=== PATIENT | male | born 1975 | race Caucasian/White ===

== ENCOUNTER 2024-07-15 08:43 | Outpatient (REF) | payer MEDICAID, SELFPAY ==
--- NOTE | ~2024-07-15 | XR_ITS ---
EXAMINATION: XR shoulder right XR shoulder left CLINICAL INFORMATION: Bilateral shoulder pain for one year. COMPARISON: None TECHNIQUE: Right shoulder, 4 views Left shoulder, 4 views FINDINGS: Right shoulder: Bones have normal alignment. No evidence of any significant arthritic disease process at the glenohumeral or acromioclavicular joint. The glenohumeral joint space is maintained. The humeral head is well-positioned over the intact glenoid. The subacromial space is normal. No evidence of calcium deposition within rotator cuff tendons. Left shoulder: Bones have normal alignment. No evidence of arthritic deformity at the glenohumeral or acromioclavicular joint. The glenohumeral joint space is maintained. The humeral head is well-positioned over the intact glenoid. The subacromial space is normal. No evidence of calcium deposition within rotator cuff tendons. XR/XR shoulder RT min 2V IMPRESSION: No specific source of pain is identified. No evidence of calcific tendinopathy at either shoulder.
--- NOTE | ~2024-07-15 | XR_ITS ---
EXAMINATION: XR shoulder right XR shoulder left CLINICAL INFORMATION: Bilateral shoulder pain for one year. COMPARISON: None TECHNIQUE: Right shoulder, 4 views Left shoulder, 4 views FINDINGS: Right shoulder: Bones have normal alignment. No evidence of any significant arthritic disease process at the glenohumeral or acromioclavicular joint. The glenohumeral joint space is maintained. The humeral head is well-positioned over the intact glenoid. The subacromial space is normal. No evidence of calcium deposition within rotator cuff tendons. Left shoulder: Bones have normal alignment. No evidence of arthritic deformity at the glenohumeral or acromioclavicular joint. The glenohumeral joint space is maintained. The humeral head is well-positioned over the intact glenoid. The subacromial space is normal. No evidence of calcium deposition within rotator cuff tendons. XR/XR shoulder LT min 2V IMPRESSION: No specific source of pain is identified. No evidence of calcific tendinopathy at either shoulder.
[2024-07-15 11:41] LABS: MANUAL DIFF FLAG NO
[2024-07-15 11:55] LABS: Basophils Absolute Auto 0.1 X10*3/uL (0.0-0.2); Eosinophils Absolute Auto 0.3 X10*3/uL (0.0-0.4); Eosinophils Percent Auto 2.8 % (0-4); Hematocrit 44.7 % (42.0-52.0); Hemoglobin 14.8 g/dl (14.0-18.0); Imm Gran Abs Auto 0.02 X10*3/uL (0.00-0.03); Imm Gran Pct Auto 0.2 % (0.0-0.4); Lymphocytes Percent Auto 33.8 % (20-40); Mean Corpuscular HGB Conc 33.1 g/dl (31.0-36.0); Mean Corpuscular Volume 87.6 fL (80.0-98.0); Mean Platelet Volume 10.4 fL (9.4-12.4); Monocytes Absolute Auto 0.6 X10*3/uL (0.1-1.2); Neutrophils Absolute Auto 4.9 x10*3/uL (2.0-8.3); Neutrophils Percent Auto 55.2 % (45-73); Platelet Count 389 X10*3/uL (160-400); Red Cell Distribution Width 13.5 % (11.0-16.0); White Blood Count 8.8 X10*3/uL (4.8-10.8)
[2024-07-15 12:22] LABS: Alanine Aminotransferase 29 U/L (0-40); Albumin Level 4.4 g/dL (3.5-5.0); Alkaline Phosphatase 99 U/L (39-117); Anion Gap 16 (12-20); Aspartate Amino Transferase 24 U/L (5-37); Bilirubin Total 1.6 mg/dL (0.0-1.0); Blood Urea Nitrogen 9 mg/dL (9-16); Calcium 10.1 mg/dL (8.4-10.2); Carbon Dioxide 25 mmol/L (22-29); Chloride 102 mmol/L (96-108); Cholesterol 170 mg/dL (<200); Estimated Glomerular Filt Rate > 60; Glucose Random 210 mg/dL (60-115); HDL Cholesterol 42 mg/dL (>40); LDL Cholesterol Calculated 88 mg/dL (<100); Potassium 4.1 mmol/L (3.3-5.1); Sodium 139 mmol/L (135-145); Total Protein 7.9 g/dL (6.5-8.0); Triglycerides 202 mg/dL (<150)
[2024-07-15 12:41] LABS: Folate 11.9 ng/mL (> or = 4.0); Vitamin B12 432 pg/mL (200-900)
[2024-07-15 12:42] LABS: Vitamin D 25-OH Total 16.4 ng/mL (>30)
[2024-07-15 13:09] LABS: Reflex LDLD? No
[2024-07-16 04:58] LABS: HIV AB/AG Nonreactive (Nonreactive); HIV Num 1 0.07 S/CO (0.00-0.99)
[2024-07-16 19:44] LABS: RPR Rapid Plasma Reagin NON-REACTIVE (NON-REACTIVE)
[2024-07-17 08:29] LABS: HCV Log PCR <1.18 NOT DETECTED Log IU/mL (NOT DETECTED); HepC Viral Load <15 NOT DETECTED IU/mL (NOT DETECTED)
== END 2024-07-15 08:44 | disposition home or self-care (01) ==
LOC: HO.HHCL 08:43
PROVIDERS: Visit Provider Internal Medicine
DX: M25.511 Pain in right shoulder (principal); M25.512 Pain in left shoulder; G89.29 Other chronic pain; Z11.4 Encounter for screening for human immunodeficiency virus [HIV]; Z11.3 Encounter for screening for infections with a predominantly sexual mode of transmission; Z00.00 Encounter for general adult medical examination without abnormal findings
CPT/HCPCS: 36415; 73030; 80053; 80061; 82306; 82607; 82746; 84443; 85025; 86592; 87389; 87522

== ENCOUNTER 2024-10-19 08:15 | Outpatient (REF) | payer MEDICAID, SELFPAY ==
[2024-10-19 11:42] LABS: MANUAL DIFF FLAG NO
[2024-10-19 11:58] LABS: Basophils Absolute Auto 0.1 X10*3/uL (0.0-0.2); Basophils Percent Auto 1.1 % (0-2); Eosinophils Absolute Auto 0.5 X10*3/uL (0.0-0.4); Eosinophils Percent Auto 5.4 % (0-4); Hematocrit 44.2 % (42.0-52.0); Hemoglobin 14.6 g/dl (14.0-18.0); Imm Gran Abs Auto 0.03 X10*3/uL (0.00-0.03); Imm Gran Pct Auto 0.3 % (0.0-0.4); Lymphocytes Percent Auto 31.9 % (20-40); Mean Corpuscular Hemoglobin 29.1 pg (27.0-33.0); Mean Platelet Volume 10.6 fL (9.4-12.4); Monocytes Absolute Auto 0.5 X10*3/uL (0.1-1.2); Monocytes Percent Auto 5.3 % (2-11); Neutrophils Absolute Auto 5.2 x10*3/uL (2.0-8.3); Platelet Count 300 X10*3/uL (160-400); Red Blood Count 5.02 X10*6/uL (4.60-5.80); White Blood Count 9.2 X10*3/uL (4.8-10.8)
[2024-10-19 12:21] LABS: Alanine Aminotransferase 23 U/L (0-40); Albumin Level 4.2 g/dL (3.5-5.0); Alkaline Phosphatase 109 U/L (39-117); Anion Gap 13 (12-20); Aspartate Amino Transferase 26 U/L (5-37); Bilirubin Direct 0.3 mg/dL (0.0-0.5); Bilirubin Total 1.1 mg/dL (0.0-1.0); Blood Urea Nitrogen 9 mg/dL (9-16); Calcium 9.6 mg/dL (8.4-10.2); Carbon Dioxide 28 mmol/L (22-29); Chloride 102 mmol/L (96-108); Cholesterol 162 mg/dL (<200); Estimated Glomerular Filt Rate > 60; Glucose Random 289 mg/dL (60-115); HDL Cholesterol 35 mg/dL (>40); LDL Cholesterol Calculated 63 mg/dL (<100); Potassium 3.7 mmol/L (3.3-5.1); Sodium 139 mmol/L (135-145); Total Protein 7.5 g/dL (6.5-8.0); Triglycerides 323 mg/dL (<150)
[2024-10-19 12:47] LABS: TSH reflex Free T4 0.81 uIU/mL (0.32-4.0); Vitamin B12 425 pg/mL (200-900)
== END 2024-10-19 08:16 | disposition home or self-care (01) ==
LOC: HO.HHCL 08:15
PROVIDERS: Visit Provider Internal Medicine
DX: Z00.00 Encounter for general adult medical examination without abnormal findings (principal); E78.5 Hyperlipidemia, unspecified; E11.65 Type 2 diabetes mellitus with hyperglycemia; Z79.4 Long term (current) use of insulin
CPT/HCPCS: 36415; 80048; 80061; 80076; 82607; 84443; 85025

== ENCOUNTER 2024-12-01 11:49 | Outpatient (AMB) | payer MEDICAID, SELFPAY ==
[2024-12-01 11:51] VITALS: BP 74/50; PULSE 84; O2SAT 97; BMI 22.5
--- NOTE | 2024-12-01 11:51 | HO.NEPHOV ---
Vital Signs 12/01/24 11:51 12/01/24 12:08 12/01/24 12:09 Height 5 ft 10 in Weight 157 lb BMI 22.5 BP 74/50 L 80/50 L 80/50 L Blood Pressure Location Lt brachial Rt brachial Rt brachial Position Sitting Sitting Standing Pulse 84 Pulse Source Pulse Oximeter Pulse Oximetry (%) 97 Oxygen Delivery Method Room Air Intake Visit Reasons: ENP: Hypotension/ Conf Citizenship Instructor Required: No Accompanied by: Self / Same As Patient Allergies No Known Allergies Allergy (Verified 12/01/24 11:52) Medication List - Last Reconciled 12/01/24 by Boris Thompson MD atorvastatin 40 mg PO DAILY buspirone 15 mg PO BID empagliflozin-metformin 12.5-1,000 mg (Synjardy) 1 tab PO BID ertugliflozin 15 mg PO DAILY gabapentin 100 mg PO DAILY haloperidol 5 mg PO QAM hydroxyzine HCl 25 mg PO BID PRN insulin glargine (Lantus Solostar U-100 Insulin) 42 units subcut BEDTIME insulin lispro 4 units subcut QPM olanzapine 10 mg PO BEDTIME HPI Comments Details: 48-year-old man with a history of diabetes mellitus referred for hypotension. He has had hypotension since 2012. Up until recently he was on lisinopril 5 mg and clonidine 0.1 mg. This was stopped about 2 months ago. Despite this the blood pressure is still low and hence this referral. He denies any lightheadedness and he has no specific symptoms. Ongoing medical problems include history of longstanding diabetes mellitus. No history of hypertension. [facility] Medical History (Updated 12/01/24 @ 12:05 by Boris Thompson MD) Chronic pain of both shoulders Diabetic peripheral neuropathy Essential hypertension Hyperlipidemia Mood disorder Type 2 diabetes mellitus Family History Mother Diabetes type 2 Father Cancer Review of Systems Const Denies fever(s) and Denies weight loss Card Denies chest pain Resp Denies cough and Denies hemoptysis GI Denies abdominal pain, Denies diarrhea and Denies nausea Musc Denies back pain Neuro Denies focal weakness Physical Exam Vital Signs: Last Vital Signs Pulse 84 12/01/24 11:51 BP 74/50 L 12/01/24 11:51 Pulse Ox 97 12/31/24 11:51 Oxygen Delivery Method Room Air 12/01/24 11:51 BMI result Body Mass Index 22.5 Comfortable Neck supple no JVD. Lungs entry equal no rales. Heart S1-S2 heard no gallop or rub. Abdomen soft nontender. Neuro alert awake oriented. No asterixis. Extremities no edema. Results Reviewed Nephrology Results: Hgb 14.6 g/dl (14.0-18.0) 10/19/24 WBC 9.2 X10*3/uL (4.8-10.8) 10/19/24 Plt Count 300 X10*3/uL (160-400) 10/19/24 Sodium 139 mmol/L (135-145) 10/19/24 Potassium 3.7 mmol/L (3.3-5.1) 10/19/24 Chloride 102 mmol/L (96-108) 10/19/24 Carbon Dioxide 28 mmol/L (22-29) 10/19/24 BUN 9 mg/dL (9-16) 10/19/24 Creatinine 1.11 mg/dL (0.5-1.4) 10/19/24 Calcium 9.6 mg/dL (8.4-10.2) 10/19/24 Assessment & Plan Assessment & Plan (1) Hypotension: Code(s): I95.9 - Hypotension, unspecified Category: Medical Plan 48-year-old man with longstanding diabetes mellitus with asymptomatic hypotension. Claudine most likely has autonomic dysfunction. This may be due to underlying diabetes mellitus. However other causes including adrenal insufficiency should be ruled out. Plan Obtain 24 hour ambulatory blood pressure monitoring. Agree with holding lisinopril and clonidine. Discussed orthostatic precautions. He should stay on a regular salt diet. Further workup we will be based on the outcome of the above investigations. Orders: Orders Cortisol, Free Today I95.9 - Hypotension, unspecified AMB 24 HR B/P Monitor PLACEMENT Today I10 - Essential (primary) hypertension, I95.9 - Hypotension, unspecified Coding Level of Care Code New Pt Level 4 (56039) Diagnoses Hypotension I95.9
[2024-12-01 12:08] VITALS: BP 80/50
[2024-12-01 12:09] VITALS: BP 80/50
== END 2024-12-01 12:09 | disposition home or self-care (01) ==
PROVIDERS: PCP Internal Medicine; Visit Provider Internal Medicine Hypertension Specialist
DX: I95.9 Hypotension, unspecified (principal)
CPT/HCPCS: 99204

== ENCOUNTER → 2024-12-01 11:49 | Outpatient (BNVA) | payer MEDICAID, SELFPAY | PROVIDERS: PCP Internal Medicine; Visit Provider Internal Medicine Hypertension Specialist | DX: I95.9 Hypotension, unspecified (principal) | CPT/HCPCS: 99202 ==

== ENCOUNTER 2024-12-29 13:23 | Outpatient (AMB) | payer MEDICAID, SELFPAY ==
[2024-12-29 13:36] VITALS: BP 80/60; PULSE 97; O2SAT 96
--- NOTE | 2024-12-29 13:36 | HO.NEPHOV ---
Vital Signs 12/29/24 13:36 Height 5 ft 10 in BP 80/60 L Blood Pressure Location Lt brachial Position Sitting Pulse 97 Pulse Source Pulse Oximeter Pulse Oximetry (%) 96 Oxygen Delivery Method Room Air Intake Visit Reasons: BPM Interpretation/ Conf Ostomy Nurse Required: No Accompanied by: Self / Same As Patient Allergies No Known Allergies Allergy (Verified 12/29/24 13:36) Medication List - Last Reconciled 12/29/24 by Boris Thompson MD atorvastatin 40 mg PO DAILY buspirone 15 mg PO BID empagliflozin-metformin 12.5-1,000 mg (Synjardy) 1 tab PO BID ertugliflozin 15 mg PO DAILY gabapentin 100 mg PO DAILY haloperidol 5 mg PO QAM hydroxyzine HCl 25 mg PO BID PRN insulin glargine (Lantus Solostar U-100 Insulin) 42 units subcut BEDTIME insulin lispro 4 units subcut QPM olanzapine 10 mg PO BEDTIME HPI Comments Details: 48-year-old man with a history of diabetes mellitus referred for hypotension. He has had hypotension since 2012. Up until recently he was on lisinopril 5 mg and clonidine 0.1 mg. This was stopped about 2 months ago. Despite this the blood pressure is still low and hence this referral. He denies any lightheadedness and he has no specific symptoms. Ongoing medical problems include history of longstanding diabetes mellitus. No history of hypertension. 12/21/2024. He underwent ambulatory blood pressure monitoring. He denies any new complaints today. Did not undergo blood test resolved [facility] Medical History (Updated 12/01/24 @ 12:05 by Boris Thompson MD) Chronic pain of both shoulders Diabetic peripheral neuropathy Essential hypertension Hyperlipidemia Mood disorder Type 2 diabetes mellitus Family History Mother Diabetes type 2 Father Cancer Physical Exam Vital Signs: Last Vital Signs Pulse 97 12/29/24 13:36 BP 80/60 L 12/29/24 13:36 Pulse Ox 96 12/29/24 13:36 Oxygen Delivery Method Room Air 12/29/24 13:36 Sitting blood pressure 80/60 standing blood pressure 80/60. He was asymptomatic Comfortable Neck supple no JVD. Lungs entry equal no rales. Heart S1-S2 heard no gallop or rub. Abdomen soft nontender. Neuro alert awake oriented. No asterixis. Extremities no edema. Office Procedures 24 B/P Monitor Interpretation Details: Daytime average blood pressure was 117/79 Nighttime average blood pressure was 120/81. No nocturnal dipping. 24 hour average was 118/80 mm Hg. CPT: 23009 24 Hour Blood Pressure Monitor Reading Procedure code (CPT) selection complete Results Reviewed Nephrology Results: Hgb 14.6 g/dl (14.0-18.0) 10/19/24 WBC 9.2 X10*3/uL (4.8-10.8) 10/19/24 Plt Count 300 X10*3/uL (160-400) 10/19/24 Sodium 139 mmol/L (135-145) 10/19/24 Potassium 3.7 mmol/L (3.3-5.1) 10/19/24 Chloride 102 mmol/L (96-108) 10/19/24 Carbon Dioxide 28 mmol/L (22-29) 10/19/24 BUN 9 mg/dL (9-16) 10/19/24 Creatinine 1.11 mg/dL (0.5-1.4) 10/19/24 Calcium 9.6 mg/dL (8.4-10.2) 10/19/24 Assessment & Plan Assessment & Plan (1) Hypotension: Code(s): I95.9 - Hypotension, unspecified Category: Medical Plan 48-year-old man with longstanding diabetes mellitus with asymptomatic hypotension. Alfred most likely has autonomic dysfunction. This may be due to underlying diabetes mellitus. However other causes including adrenal insufficiency should be ruled out. 24 hour ambulatory blood pressure monitoring did not reveal any significant hypotension. Agree with holding lisinopril and clonidine. No need for any antihypertensive medications. Check cortisol levels. Discussed orthostatic precautions. Despite low blood pressure readings he is asymptomatic. She will continue to watch him closely. If he is symptomatic then we can add midodrine 2.5 mg in the morning and titrate the dose as needed. He should stay on a regular salt diet. Orders: Orders Cortisol, Free 1 Day I95.9 - Hypotension, unspecified UA and rflx microscopic 1 Day I95.9 - Hypotension, unspecified AMB 24 HR B/P Monitor INTERPRETATION Today I10 - Essential (primary) hypertension Coding Level of Care Code Est Pt Level 4 (25392) Diagnoses Hypotension I95.9 CPT Codes - CPT: 76369 24 Hour Blood Pressure Monitor Reading ([id number])
== END 2024-12-29 13:47 | disposition home or self-care (01) ==
PROVIDERS: PCP Internal Medicine; Visit Provider Internal Medicine Hypertension Specialist
DX: I95.9 Hypotension, unspecified (principal); E11.8 Type 2 diabetes mellitus with unspecified complications
CPT/HCPCS: 93790; 99214

== ENCOUNTER → 2024-12-29 13:23 | Outpatient (BNVA) | payer MEDICAID, SELFPAY | PROVIDERS: PCP Internal Medicine; Visit Provider Internal Medicine Hypertension Specialist | DX: I95.9 Hypotension, unspecified (principal) | CPT/HCPCS: 93786; 99212 ==

== ENCOUNTER 2025-02-17 07:46 | Outpatient (REF) | payer MEDICAID, SELFPAY ==
[2025-02-17 11:10] LABS: Appearance Urine Clear; Color Urine Yellow; Glucose Urine UA >=1000 mg/dL (Negative); Leukocyte Esterase Urine Negative (Negative); Nitrite Urine Negative (Negative); Specific Gravity - Urine >= 1.030 (1.005-1.025); UMIC TRIGGER UA YES; Urine Blood Negative (Negative); Urine Ketones Negative (Negative); Urine Protein Trace mg/dL (Neg-Trace)
[2025-02-17 11:19] LABS: Bacteria Urine None Seen (None Seen); Hyaline Casts Urine 0-2 /LPF (0-2); RBC Urine 0-2 /HPF (0-2); Squamous Epithelial Cell Urine 0-2 /HPF (0-2); WBC Urine 0-5 /HPF (0-5)
[2025-02-28 13:28] LABS: Cortisol, Free 0.64 mcg/dL
== END 2025-02-17 07:47 | disposition home or self-care (01) ==
LOC: HO.10HDL 07:46
PROVIDERS: Visit Provider Internal Medicine Hypertension Specialist
DX: I95.9 Hypotension, unspecified (principal)
CPT/HCPCS: 36415; 81001; 81003; 82530

== ENCOUNTER 2025-02-22 13:38 | Outpatient (AMB) | payer MEDICAID, SELFPAY ==
[2025-02-22 13:49] VITALS: BP 82/60; PULSE 80; O2SAT 97; BMI 22.2
--- NOTE | 2025-02-22 13:49 | HO.NEPHOV ---
Vital Signs 02/22/25 13:49 Height 5 ft 10 in Weight 155 lb BMI 22.2 BP 82/60 L Blood Pressure Location Lt brachial Position Sitting Pulse 80 Pulse Source Pulse Oximeter Pulse Oximetry (%) 97 Oxygen Delivery Method Room Air Intake Visit Reasons: Hypotension/ Conf It Communications Specialist Required: No Accompanied by: Self / Same As Patient Allergies No Known Allergies Allergy (Verified 02/22/25 13:51) HPI Comments Details: 49-year-old man with a history of diabetes mellitus referred for hypotension. He has had hypotension since 2012. Up until recently he was on lisinopril 5 mg and clonidine 0.1 mg. This was stopped about 2 months ago. Despite this the blood pressure is still low and hence this referral. He denies any lightheadedness and he has no specific symptoms. Ongoing medical problems include history of longstanding diabetes mellitus. No history of hypertension. 12/21/2024. He underwent ambulatory blood pressure monitoring. He denies any new complaints today. Did not undergo blood test 02/22/25 No specific complaints No lighheadedness [facility] Medical History (Updated 12/01/24 @ 12:05 by Boris Thompson MD) Chronic pain of both shoulders Diabetic peripheral neuropathy Essential hypertension Hyperlipidemia Mood disorder Type 2 diabetes mellitus Family History Mother Diabetes type 2 Father Cancer Physical Exam Vital Signs: Last Vital Signs Pulse 80 02/22/25 13:49 BP 82/60 L 02/22/25 13:49 Pulse Ox 97 02/22/25 13:49 Oxygen Delivery Method Room Air 02/22/25 13:49 BMI result Body Mass Index 22.2 Comfortable Neck supple no JVD. Lungs entry equal no rales. Heart S1-S2 heard no gallop or rub. Abdomen soft nontender. Neuro alert awake oriented. No asterixis. Extremities no edema. Results Reviewed Nephrology Results: Hgb 14.6 g/dl (14.0-18.0) 10/19/24 WBC 9.2 X10*3/uL (4.8-10.8) 10/19/24 Plt Count 300 X10*3/uL (160-400) 10/19/24 Sodium 139 mmol/L (135-145) 10/19/24 Potassium 3.7 mmol/L (3.3-5.1) 10/19/24 Chloride 102 mmol/L (96-108) 10/19/24 Carbon Dioxide 28 mmol/L (22-29) 10/19/24 BUN 9 mg/dL (9-16) 10/19/24 Creatinine 1.11 mg/dL (0.5-1.4) 10/19/24 Calcium 9.6 mg/dL (8.4-10.2) 10/19/24 Urine Protein Trace mg/dL (Neg-Trace) 02/17/25 Assessment & Plan Assessment & Plan (1) Hypotension: Code(s): I95.9 - Hypotension, unspecified Category: Medical Plan 49-year-old man with longstanding diabetes mellitus with asymptomatic hypotension. Alfred most likely has autonomic dysfunction. This may be due to underlying diabetes mellitus. However other causes including adrenal insufficiency should be ruled out. 24 hour ambulatory blood pressure monitoring did not reveal any significant hypotension. Agree with holding lisinopril and clonidine. No need for any antihypertensive medications. Check cortisol levels. - Done on 02/17 and still pending. Discussed orthostatic precautions. Urine SG is > 1.030 Encourged to drink more fluids Despite low blood pressure readings he is asymptomatic. Shall continue to watch him closely. If he is symptomatic then we can add midodrine 2.5 mg in the morning and titrate the dose as needed. He should stay on a regular salt diet. Coding Level of Care Code Est Pt Level 4 (26827) Diagnoses Hypotension I95.9
== END 2025-02-22 13:58 | disposition home or self-care (01) ==
LOC: HO.HKA 13:39
PROVIDERS: PCP Internal Medicine; Visit Provider Internal Medicine Hypertension Specialist
DX: I95.9 Hypotension, unspecified (principal)
CPT/HCPCS: 99214

== ENCOUNTER → 2025-02-22 13:38 | Outpatient (BNVA) | payer MEDICAID, SELFPAY | PROVIDERS: PCP Internal Medicine; Visit Provider Internal Medicine Hypertension Specialist | DX: I95.9 Hypotension, unspecified (principal); E11.9 Type 2 diabetes mellitus without complications | CPT/HCPCS: 99212 ==

== ENCOUNTER 2025-08-05 09:15 | Outpatient (REF) | payer MEDICAID, SELFPAY ==
--- OUTSIDE RECORDS SUMMARY | 2025-08-05 09:49 | XMS_ITS | Encounter Summary ---
Author Organization [employer] Address [address] [place] [address] Care Team Providers Care Airplane Dispatcher Name Role Phone [facility] Primary Care Provider [phone] Annemarie Bautista MD Primary Care Pro vider Annemarie Cui MD Primary Care Provide r Agueda Cannon PharmD Unavailable [phone] Reason for Visit * Reason Onset Date Comments requesting a call back 12/12/2022 Encounter Details Date Type Department Care Team (Late st Contact Info) Description 12/12/2022 Telephone [facility] MEDICINE [address] [place], [place] [phone] [facility] [address] [place], [place] [phone] requesting a call back Social History Tobacco Use Types Packs/Day Years Used Date Smoking Tobacco: Never Assessed Sex and Gender Information Value Date Recorded Sex Assigned at Male 10/01/2022 10:39 AM EDT Legal Sex Male 10:39 AM EDT Gender Identity Choose not to disclose 10:39 AM EDT Sexual Orientation Choose not to disclose 2021 10:39 AM EDT documented as of this encounter Miscellaneous Notes * Telephone Encounter - Sarah TATYANA Henriquez - 01/01/2023 8:42 AM EST Ok thank you. I have already notified Dr. Arias that we do not get involve with SS determination and just updated her that patient has to make an appt with provider. No further action is required on our part. * Telephone Encounter - Sarah Henriquez LPN - 12/14/2022 10:02 AM EST Requesting information from [facility]. Expl. patient has not yet had TP appt with provider but we would talk with her to discuss and let her review and make decision. release is on file they have all old records [address] but want more specifics on diabetes, more current labs A1c and possibly current notes. Pt will need to have TP appt. * Telephone Encounter - Sarah Henriquez LPN - 12/13/2022 2:14 PM EST We do not get involved with disability determination at [facility], but left a message so they can give usmore information if we can even help them. Pending call back * Telephone Encounter - Brien Berry - 12/12/2022 12:52 PM EST Tc from Dr Arias with disability determination services requesting a call back regarding pt Please contact Dr Arias at [phone] documented in this encounter Plan of Treatment Upcoming Encounters Date Type Department Care Team (Late st Contact Info) Description 08/23/2025 3:00 PM EDT Medication Management [facility] MEDICINE [address] [place] [phone] Agueda Cannon, RadhaD [address] [place] [address] documented as of this encounter Visit Diagnoses Not on filedocumented in this encounter Care Teams Airplane Dispatcher Relationship Specialty Start Date End Date Sandra Moreno FNP [address] [place] [id number] PCP - General Family Medicine 07/26/22 05/02/23 Annemarie Bautista MD [address] [place] [id number] PCP - General Internal Medicine 05/03/23 04/16/24 Annemarie Cui MD [address] [place] [id number] PCP - General Internal Medicine 05/05/24 Agueda Cannon, PharmD [address] [place] [phone] Pharmacist Internal Medicine 07/19/24 documented as of this encounter
--- OUTSIDE RECORDS SUMMARY | 2025-08-05 09:49 | XMS_ITS | Clinical Summary ---
Author Organization [employer] Address [address] [facility] [address] [place] [address] Care Team Providers Care Wrist Hemmer Name Role Phone Annemarie Cui MD Primary Care Provide r Agueda Cannon PharmD Unavailable [phone] Allergies Active Allergy Reactions Criticality Noted Date Comments Dulaglutide 11/16/2021 Other Reaction(s): GI Problems Medications gabapentin (Neurontin) 100 MG capsule TAKE 1 CAPSULE BY MOUTH THREE TIMES DAILY FOR PERIPHERAL NERVE PAIN 90 capsule 1 023 Active busPIRone (Buspar) 15 MG tablet Take 1 tablet (15 mg) by mouth 2 times daily. 60 tablet 11 024 Active OLANZapine (ZyPREXA) 10 MG tablet Take 1 tablet (10 mg) by mouth at bedtime. 30 tablet 024 Active FreeStyle lancets DIRECTED TO TEST BLOOD SUGAR FOUR TIMES DAILY FOR 30 DAYS Active OLANZapine (ZyPREXA) 5 MG tablet Take 1 tablet by mouth in the morning. 024 Active haloperidol (Haldol) 5 MG tablet Take 5 mg by mouth in the morning. Active hydrOXYzine HCl (Atarax) 25 MG tablet Take 1 tablet by mouth 2 times daily. 024 Active atorvastatin (Lipitor) 80 MG tabletIndication s:Hyperlipidemia , unspecified hyperlipidemia type Take 1 tablet by mouth once daily 90 tablet 3 025 Active empagliflozin-me tFORMIN (Synjardy) 12.5-1000 MGIndications:Ty pe 2 diabetes mellitus with hyperglycemia, with long-term current use of insulin ([facility]) Take 1 tablet by mouth twice daily 180 tablet 3 Active Icosapent Ethyl (Vascepa) 1 g capsuleIndicatio ns:Hyperlipidemi a, unspecified hyperlipidemia type Take 2 capsules (2 g) by mouth with breakfast and with evening meal. 360 capsule Active glucose (Glutose) 40 % gel oral gelIndications:T ype 2 diabetes mellitus with hyperglycemia, with long-term current use of insulin ([facility]) Take 15 g by mouth if needed for low blood sugar. 45 g 11 Active Continuous Glucose Button Sewer (FreeStyle Gloria 2 [place]) deviceIndication s:Type 2 diabetes mellitus with hyperglycemia, with long-term current use of insulin ([facility]) SCAN SENSOR EVERY 8 HOURS 1 each Active cholecalciferol (Vitamin D-3) 25 MCG (1000 UT) tabletIndication s:Vitamin D deficiency Take 1 tablet (25 mcg) by mouth Once per day. 90 tablet 1 Active pen needle 32G x 4 mm miscIndications: Type 2 diabetes mellitus with hyperglycemia, with long-term current use of insulin ([facility]) Use as instructed with insulin administration three times daily 100 each 2025 Active Continuous Glucose Sensor (FreeStyle Gloria 2 Plus Sensor) miscIndications: Type 2 diabetes mellitus with hyperglycemia, with long-term current use of insulin ([facility]) 1 each every 8 (eight) hours. 2 each Active insulin glargine (Lantus SoloStar) 100 UNIT/ML penIndications:T ype 2 diabetes mellitus with hyperglycemia, with long-term current use of insulin ([facility]) ADMINISTER SUBCUTANEOUSLY 48 UNITS ONCE DAILY AT BEDTIME 15 mL 3 Active insulin lispro (HumaLOG KWIKPEN) 100 UNIT/ML injectionIndicat ions:Type 2 diabetes mellitus with hyperglycemia, with long-term current use of insulin ([facility]) Inject subcutaneously twice daily before meals using sliding scale. Do not use if skipping meal. 15 mL 3 Active gabapentin (Neurontin) 300 MG capsuleIndicatio ns:Diabetic peripheral neuropathy (CMS/HCC) Take 1 capsule (300 mg) by mouth 3 times daily. 90 capsule 2 025 2025 Active insulin glargine (Lantus SoloStar) 100 UNIT/ML penIndications:T ype 2 diabetes mellitus with hyperglycemia, with long-term current use of insulin ([facility]) ADMINISTER SUBCUTANEOUSLY 46 UNITS ONCE DAILY AT BEDTIME 025 2024 Discontinued(R eorder (will not trigger notification to Pharmacy)) insulin lispro (HumaLOG KWIKPEN) 100 UNIT/ML injectionIndicat ions:Type 2 diabetes mellitus with hyperglycemia, with long-term current use of insulin ([facility]) Inject subcutaneously twice daily before meals using sliding scale. Do not use if skipping meal. 15 mL 3 025 2024 Discontinued(R eorder (will not trigger notification to Pharmacy)) Continuous Glucose Sensor (FreeStyle Gloria 2 Sensor) miscIndications: Type 2 diabetes mellitus with hyperglycemia, with long-term current use of insulin ([facility]) Apply 1 sensor every 14 days 2 each 2 025 2024 Discontinued(O ther) Active Problems Problem Noted Date Diagnosed Date Hypotension 11/10/2024 Health care maintenance 06/25/2024 Chronic pain of both shoulders 06/25/2024 Type 2 diabetes mellitus 08/12/2021 Assessment & Plan (07/23/2025 4:56 PM EDT): Diabetes is: not controlled - Lab Results Component Value Date HGBA1C 11.2 (A) 07/23/2025 HGBA1C 11.9 (A) 07/21/2025 HGBA1C 8.9 (A) 03/17/2025 - Lab Results Component Value Date MICROALBUR 9.5 08/10/2021 CREATININE 1.11 10/19/2024 Continue to follow-up with pharmacy [facility] - Diabetic eye exam: Up-to-date - Diabetic foot exam: Referral done today - Continue lifestyle modifications - Continue current medications - Follow up: 3 months Assessment & Plan (06/25/2024 4:32 PM EDT): Diabetes is: not controlled - Lab Results Component Value Date HGBA1C 15.0 (A) 06/25/2024 HGBA1C >14.0 (H) 03/13/2022 - Lab Results Component Value Date MICROALBUR 9.5 08/10/2021 -Changes: CGM ordered, lantus refilled, I started jariance, c/w metformin patient referred to [facility] - Diabetic eye exam:referral done - Diabetic foot exam:pending - Continue lifestyle modifications - Continue current medications - Follow up: 3 months Mood disorder 08/12/2021 Smoker 08/12/2021 Hyperlipidemia 08/12/2021 Diabetic peripheral neuropathy 08/12/2021 Assessment & Plan (07/23/2025 4:57 PM EDT): Counseling was done today, I increase gabapentin to 300 mg every 8 hours, I also refer him to lead fire protection engineer Resolved Problems Problem Noted Date Diagnosed Date Resolved Date Essential hypertension 08/12/202107/23 Assessment & Plan (06/25/2024 4:30 PM EDT): - Aerobic exercise to reduce BP. Initial goal of 30 min walk 3-5x/week. Increase as tolerated. - low-sodium diet (goal: <2g/day) and heart healthy diet such as DASH to reduce BP and prevent ASCVD. - Home BP monitoring 1-2 x day with goal of <140/90. - Seek immediate medical attention for chest pain, palpitations, SOB, syncope, or sudden changes in mental status. - Do not change or discontinue current prescriptions without first consulting health care provider Encounters Date Type Department Care Team Description 07/23/2025 3:30 PM EDT Office Visit [facility] [address], [place] [phone] Annemarie Cui MD Diabetic peripheral neuropathy (CMS/HCC) (Primary Dx); Type 2 diabetes mellitus with hyperglycemia, with long-term current use of insulin (CMS/HCC); Screening for colon cancer 07/23/2025 Travel 07/22/2025 Refill [facility] [address], [place] [phone] Annemarie Cui MD Type 2 diabetes mellitus with hyperglycemia, with long-term current use of insulin (CMS/HCC) 07/21/2025 Travel 07/20/2025 Telephone [facility] [address] [place] [address] Annemarie Cui MD Chart Prep 07/20/2025 Travel 07/16/2025 Patient Outreach [facility] [address] [place] [address] Annemarie Cui MD Pre-visit Planning (Pre-visit planning - LVM ) 07/16/2025 Travel 07/09/2025 Travel 06/23/2025 Telephone [facility] [address] [place] [address] Annemarie Cui MD 05/06/2025 Telephone [facility] [address] [place] [address] Annemarie Cui MD Appointment Request from Last 3 Months Immunizations Immunization Administration Dates Next Due Hep A, Adult 06/30/2013,11/16/2012 Hep B, adult 06/30/2013,12/13/2012,11/16/2012 Influenza injectable quadriv alent preservative free 08/29/2021 Influenza, IIV3, injectable 09/20/2017, 6,10/12/2014 Influenza, injectable, quadr ivalent, preservative free, pediatric 09/20/2017,09/25/2016,10/12/2014 Influenza, trivalent, adjuvanted 09/20/2020 MMR 01/11/2017,11/16/2012 Pneumococcal Polysaccharide PPSV23 03/13/2022, Tdap 03/10/2016 Family History Medical History Relation Name Comments Cancer Father Diabetes type II Mother Relation Name Status Comments Father Mother Social History Tobacco Use Types Packs/Day Years Used Date Smoking Tobacco: Every Day Cigarettes Passive Smoke Exposure: Current Tobacco Cessation:Ready to Q uit: Not Asked; Counseling Given: Not Answered Alcohol Use Standard Drinks/Week Comments Not Currently 0 (1 standard drink = 0.6 oz pur e alcohol) Depression Answer Date Recorded Patient Health Questionnaire-9 Score 17 07/23/2025 Patient Health Questionnaire-9 Score 17 07/23/2025 Last PHQ-9: Questionnaire Data Not on file 0 07/23/2025 Housing Stability Answer Date Recorded What is your housing situation today? Not on ayala e 07/23/[address] you li ve. Do you have problems with any of the following? None of the above 07/23/2025 Food Insecurity Answer Date Recorded Within the past 12 months, y ou worried that your food would run out before you got money to buy more: Never True 07/23/2025 Within the past 12 months,th e food you bought just didn't last and you didn't have enough money to get more: Never True Transportation Answer Date Recorded In the past 12 months, has l ack of transportation kept you from medical appts, meetings, work or from getting things needed for daily living? No 07/23/2025 Utilities Answer Date Recorded In the past 12 months, has t he electric, gas, oil or water company threatened to shut off services in your home? No 07/23/2025 Depression Answer Date Recorded Patient Health Questionnaire-2 Score 6 07/23/2025 Internet Access Answer Date Recorded Internet Access Q1 Yes 07/23/2025 Internet Access Q2 Not on file 07/23/2025 Sex and Gender Information Value Date Recorded Sex Assigned at Male 10/01/2022 10:39 AM EDT Legal Sex Male 10:39 AM EDT Gender Identity Choose not to disclose 10:39 AM EDT Sexual Orientation Choose not to disclose 2021 10:39 AM EDT Last Filed Vital Signs Vital Sign Reading Time Taken Comments Blood Pressure 112/64 07/23/2025 3:28 PM EDT Pulse 69 07/23/2025 3:28 PM EDT Temperature 36.8 C (98.3 F) 07/23/2025 3:28 PM EDT Respiratory Rate 20 07/23/2025 3:28 PM EDT Oxygen Saturation 99% 06/25/2024 2:05 PM EDT Inhaled Oxygen Concentration - - Weight 67.8 kg (149 lb 6.4 oz) 07/23/2025 3:28 P M EDT Height 177.8 cm (5' 10 ) 07/23/2025 3:28 PM EDT Body Mass Index 21.44 07/23/2025 3:28 PM EDT Plan of Treatment Upcoming Encounters Date Type Department Care Team (Late st Contact Info) Description 08/23/2025 3:00 PM EDT Medication Management [facility] [address] [place] [address] Agueda Cannon, PharmD [address] [place] [address] Health Maintenance Due Date Last Done Comments CT Colonography 1975 Colonoscopy 1975 Colorectal Cancer Screening 1975 FIT DNA/Cologuard 1975 FIT 1975 FOBT 1975 Sigmoidoscopy 1975 Diabetes: Foot Exam 1985 Family Planning (PISQ) 1990 Diabetes: Urine Protein Screening 08/10/2022 08/10/2021 Pneumococcal Vaccine: Pediatrics (0 to 5 Years) and At-Risk Patients (6 to 49) Years (2 of 2 - PCV) 03/13/2023 03/13/2022, 03/10/2016 SDOH Screening 06/16/2025 06/16/2024 COVID-19 Vaccine ( season) 2025 12/19/2021, 01/25/2021, 12/28/2020 Influenza Vaccine (#1) 2025 , 09/20/2020, 09/20/2017, Additional history exists Lipid Panel 10/19/2025 10/19/2024, 0803/2024, 03/13/2022, Additional history exists Diabetes: Hemoglobin A1C 10/23/2025 025, 07/21/2025, 03/17/2025, Additional history exists Zoster Vaccines (1 of 2) 2025 Depression Monitoring 01/23/2026 07/23/2025, 025 DTaP/Tdap/Td Vaccines (2 - Td or Tdap) 03/10/2026 03/10/2016 Disability Screening 07/16/2026 07/16/2025 Alcohol/Substance Use Screening 07/23/2026 07/23/2025 Tobacco Screening 07/23/2026 07/23/2025 Eye Exam 03/23/2027 03/23/2025, 03/03, 03/23/2025, Additional history exists RSV Patients and Patients Aged 60 years or older (1 - 1-dose 75+ series) 2050 Hepatitis A Vaccines Aged Out 06/30/2013, 11/16/20 12 No longer eligible based on patient's age to complete this topic Hepatitis B Vaccines Completed 06/30/2013, 12/13/2012, 11/16/2012 HIV Screening Completed 07/15/2024 Hepatitis C Screening Completed 07/15/2024 HIB Vaccines Aged Out No longer eligi ble based on patient's age to complete this topic HPV Vaccines Aged Out No longer eligi ble based on patient's age to complete this topic IPV Vaccines Aged Out No longer eligi ble based on patient's age to complete this topic Meningococcal B Vaccine Aged Out No l onger eligible based on patient's age to complete this topic Meningococcal Vaccine Aged Out No dionna brayan eligible based on patient's age to complete this topic RSV under 20 months Aged Out No longe r eligible based on patient's age to complete this topic Rotavirus Vaccines Aged Out No longer eligible based on patient's age to complete this topic Goals Goal Patient Goal Type Associated Problems Recent Progress Patient-Stated? Author Hemoglobin A1c < 7 Result Component 11.2( 3:34 PM EDT) No Agueda Cannon PharmD Procedures Procedure Name Priority Date/Time Associated Diagnosis Comments POCT GLYCATED HEMOGLOBIN, TOTAL Routine 07/23/2025 3:34 PM EDT Type 2 diabetes mellitus with hyperglycemia, with long-term current use of insulin ([facility]) POCT GLUCOSE Routine 07/23/2025 3:34 PM EDT Type 2 diabetes mellitus with hyperglycemia, with long-term current use of insulin ([facility]) POCT GLYCATED HEMOGLOBIN, TOTAL Routine 07/21/2025 3:38 PM EDT Type 2 diabetes mellitus with hyperglycemia, with long-term current use of insulin ([facility]) LIPID PANEL, STANDARD Routine 10/19/2024 8:17 AM EST HEPATITIS C VIRAL RNA, QUANTITATIVE, REAL-TIME PCR Routine 07/15/2024 8:48 AM EDT Health care maintenance HIV 1/2 ANTIGEN/ANTIBODY, FOURTH GENERATION W/RFL Routine 07/15/2024 8:48 AM EDT Health care maintenance ALBUMIN, RANDOM URINE W/CREATININE Routine 08/10/2021 9:55 AM EDT from Last 3 Months or Most Recently Relevant to Health Maintenance Results * (ABNORMAL) POCT HGB A1C (07/23/2025 3:34 PM EDT) Only the most recent of2 resultswithin the time period is included. Hemoglobin A1C 11.2(A) 4.0 - 5.7 % QC Media Lot # [id number] Lot# Expiration Date Blood 07/23/2025 3:34 PM EDT Annemarie Wisdom MD POINT OF CARE TEST EN TER/EDIT ORDERABLES Final Result * (ABNORMAL) POCT Glucose (07/23/2025 3:34 PM EDT) Glucose Blood, POC 284(A) 60 - 200 mg/dL QC Media Lot # [id number] Lot# Expiration Date Blood Capillary blood specimen / Unknown 07/23/2025 3:34 PM EDT Annemarie Wisdom MD POINT OF CARE TEST EN TER/EDIT ORDERABLES Final Result * (ABNORMAL) Lipid Panel, Standard (10/19/2024 8:17 AM EST) Triglycerides 323(H) <150 mg/dL [facility] Comment:Desirable Triglyceri de: less than 150 mg/dLBorderline High Triglyceride 150-199 mg/dLHigh Triglyceride: 200-499 mg/dLVery High Triglyceride: greater than or equal to 5OO mg/dL Cholesterol 162 <200 mg/dL [facility] Comment:Desirable Cholestero l: less than 200 mg/dLBorderline High Cholesterol: 200-239 mg/dLHigh Cholesterol: greater than 239 mg/dL LDL Cholesterol Calculated 63 <100 mg/dL [facility] Comment:Desirable LDL: less than 100 mg/dLNear Optimal/Above Optimal LDL: 110- 129 mg/dLBorderline High LDL: 130-159 mg/dLHigh LDL: 160-189 mg/dLVery High LDL: greater than or equal to 190 mg/dL HDL Cholesterol 35(L) >40 mg/dL [facility] Comment:Desirable HDL: great er than 40 mg/dL Note: This HDL assay may give artificially low results in patients with liver disease. 10/19/2024 8:17 AM EST 10/19/2024 11:36 AM EST Annemarie Wisdom MD LAB BLOOD ORDERABLES Final Result Performing Organization Address [facility] de Phone Number [facility] [address] [place] [phone] * Hepatitis C Viral RNA, Quantitative, Real-Time PCR (07/15/2024 8:48 AM EDT) Hepatitis C Viral Load <15 NOT DETECTED NOT DETECTED IU/mL [facility] HCV Log PCR <1.18 NOT DETECTED NOT DETECTED Log IU/mL [facility] Comment:For additional infor alicia, please refer [email or web address].CropUp/faq/BUA94j2(This link is being provided for informational/educational purposes only.)THIS TEST WAS PERFORMED AT:[employer] [place] [id number] BARKER MD Blood 07/15/2024 8:48 AM EDT 07/15/2024 11:33 AM EDT Annemarie Wisdom MD LAB BLOOD ORDERABLES Final Result Performing Organization Address [facility] Co de Phone Number [facility] [address] [place] [phone] * HIV-1/2 Antigen and Antibodies, Fourth Generation, with Reflexes (07/15/2024 8:48 AM EDT) HIV AB/AG Nonreactive Nonreactive [facility] Comment:HIV-1 p24 Ag and/or HIV-1/HIV-2 Ab not detected.A test result that is nonreactive does not exclude thepossibility of exposure to or infection with HIV-1 and/orHIV-2. Nonreactive results in this assay for individualswith prior exposure to HIV-1 and/or HIV-2 may be due toantigen and antibody levels that are below the limit ofdetection of this assay.The [email or web address] HIV Ag/Ab Combo assay result andsupplemental assay results should be interpreted inconjunction with the patient's clinical presentation,history and other laboratory results. If the results areinconsistent with clinical evidence, additional testing issuggested to confirm the result. Blood Venous blood specimen / Unknown 07/15/2024 8:48 AM EDT 07/15/2024 11:33 AM EDT Annemarie Wisdom MD LAB BLOOD ORDERABLES Final Result [facility] [address] [place] [phone] * (ABNORMAL) ALBUMIN, RANDOM URINE W/CREATININE (08/10/2021 9:55 AM EDT) Pathologist [facility] Microalbumin Urine 9.5 See Note: mg/dL [facility] Comment: Reference Range: Reference Range Not established Microalb/Creat Ratio 104(H) <30 mcg/mg creat [facility] Comment: The ADA defines abnormalities in albumin excretion as follows: Category Result (mcg/mg creatinine) Normal <30 Microalbuminuria 30-299 Clinical albuminuria > OR = 300 The ADA recommends that at least two of three specimens collected within a 3-6 month period be abnormal before considering a patient to be within a diagnostic category. Creatinine, Urine 91 20 - 320 mg/dL [facility] 08/10/2021 9:55 AM EDT us Cami España CRYPTOZOOLOGIST LAB URINE ORDERABLES Final Resu lt [facility] [address] [place] [address], from Last 3 Months or Most Recently Relevant to Health Maintenance [facility] [employer] Care Teams Wrist Hemmer Relationship Specialty Start Date End Date Annemarie Cui MD [address] [place], [place] PCP - General Internal Medicine 05/05/24 Agueda Cannon PharmD [address] [place], [place] Pharmacist Internal Medicine 07/19/24
--- OUTSIDE RECORDS SUMMARY | 2025-08-05 09:49 | XMS_ITS | Encounter Summary ---
Author Organization [employer] Address [address] [place] [address] Care Team Providers Care Bilingual Trainer Name Role Phone Annemarie Cui MD Primary Care Provide r Agueda Cannon PharmD Unavailable [phone] Encounter Details Date Type Department Care Team ([facility] st Contact Info) Description 10/13/2024 Orders Only [facility] MED[facility] [address] [place], [place] [phone] Annemarie Cui MD [address] [place], [place] [phone] Social History Tobacco Use Types Packs/Day Years Used Date Smoking Tobacco: Every Day Cigarettes Passive Smoke Exposure: Current Alcohol Use Standard Drinks/Week Comments Not Currently 0 (1 standard drink = 0.6 oz pur e alcohol) Depression Answer Date Recorded Patient Health Questionnaire-9 Score 14 06/25/2024 Patient Health Questionnaire-9 Score 14 06/25/2024 Last PHQ-9: Questionnaire Data Not on file 0 06/25/2024 Housing Stability Answer Date Recorded What is your housing situation today? I have jeffy monahan 06/16/[address] you li ve. Do you have problems with any of the following? None of the above 06/16/2024 Food Insecurity Answer Date Recorded Within the past 12 months, y ou worried that your food would run out before you got money to buy more: Never True 06/16/2024 Within the past 12 months,th e food you bought just didn't last and you didn't have enough money to get more: Never True Transportation Answer Date Recorded In the past 12 months, has l ack of transportation kept you from medical appts, meetings, work or from getting things needed for daily living? No 06/16/2024 Utilities Answer Date Recorded In the past 12 months, has t he electric, gas, oil or water company threatened to shut off services in your home? No 06/16/2024 Depression Answer Date Recorded Patient Health Questionnaire-2 Score 6 06/25/2024 Internet Access Answer Date Recorded Internet Access Q1 Yes 08/03/2024 Internet Access Q2 Not on file 08/03/2024 Sex and Gender Information Value Date Recorded Sex Assigned at Male 10/01/2022 10:39 AM EDT Legal Sex Male 10:39 AM EDT Gender Identity Choose not to disclose 10:39 AM EDT Sexual Orientation Choose not to disclose 2021 10:39 AM EDT documented as of this encounter Plan of Treatment Upcoming Encounters Date Type Department Care Team (Late st Contact Info) Description 08/23/2025 3:00 PM EDT Medication Management [facility] [address] [place] [address] Agueda Cannon, PharmD [address] [place] [address] documented as of this encounter Goals Goal Patient Goal Type Associated Problems Recent Progress Patient-Stated? Author Hemoglobin A1c < 7 Result Component 11.2( 5 3:34 PM EDT) No Agueda Cannon, PharmD documented as of this encounter Visit Diagnoses Not on filedocumented in this encounter Additional Health Concerns Assessment Noted Time PHQ-9 Depression Total Score: 14 024 2:15 PM EDT documented as of this encounter Care Teams Bilingual Trainer Relationship Specialty Start Date End Date Annemarie Cui MD [address] [place] [phone] PCP - General Internal Medicine 05/05/24 Agueda Cannon, PharmD [address] [place] [phone] Pharmacist Internal Medicine 07/19/24 documented as of this encounter
--- OUTSIDE RECORDS SUMMARY | 2025-08-05 09:49 | XMS_ITS | Encounter Summary ---
Author Organization [employer] Address [address] [place] [address] Care Team Providers Care Certified Forklift Operator Name Role Phone Annemarie Cui MD Primary Care Provide r Agueda Cannon PharmD Unavailable [phone] Reason for Visit * Reason Comments Med Refill Encounter Details Date Type Department Care Team (Late st Contact Info) Description 04/07/2025 Refill [facility] [address] [place], [place] [phone] Ragini Boyle FNP [address] [place], [place] [phone] Social History Tobacco Use Types Packs/Day Years [...] Description 08/23/2025 3:00 PM EDT Medication Management [facility] [address] [place] [address] Agueda Cannon, PharmD [address] [place] [phone] documented as of this encounter Goals Goal [...] documented as of this encounter Care Teams Certified Forklift Operator Relationship Specialty Start Date End Date Annemarie Ciu MD [address] [place] [phone] PCP - General Internal Medicine 05/05/24 Agueda Cannon, PharmD [address] [place] [phone] Pharmacist Internal Medicine 07/19/24 documented as of this encounter
--- OUTSIDE RECORDS SUMMARY | 2025-08-05 09:49 | XMS_ITS | Encounter Summary ---
Author Organization [employer] Address [address] [facility] 7t [place] [address] Care Team Providers Care Engagement Executive Name Role Phone Annemarie Cui MD Primary Care Provide r Agueda Cannon PharmD Unavailable +- [phone] Reason for Visit * Reason Onset Date Comments Med Change Request 05/05/2024 Encounter Details Date Type Department Care Team (Late st Contact Info) Description 05/05/2024 Telephone [facility] [address] [place], [place] [phone] Annemarie Cui MD [address] [place], [place] [phone] Med Change Request Social History Tobacco Use Types Packs/Day Years Used Date Smoking Tobacco: Every Day Cigarettes Passive Smoke Exposure: Past Alcohol Use Standard Drinks/Week Comments Not Currently 0 (1 standard drink = 0.6 oz pur e alcohol) Sex and Gender Information Value Date Recorded Sex Assigned at Male 10/01/2022 10:39 AM EDT Legal Sex Male 10:39 AM EDT Gender Identity Choose not to disclose 10:39 AM EDT Sexual Orientation Choose not to disclose 2021 10:39 AM EDT documented as of this encounter Miscellaneous Notes * Telephone Encounter - Xena Mcduffie - 05/05/2024 12:50 PM EDT Tc from pharmacy states both 100 mg rx for gabapentin needs to be combined to 3 tablets per day. States insurance will not cover both rx. Please clarify. documented in this encounter Plan of Treatment Upcoming Encounters Date Type Department Care Team (Late st Contact Info) Description 08/23/2025 3:00 PM EDT Medication Management [facility] [address] [place] [address] Agueda Cannon PharmD [address] [place] [address] documented as of this encounter Visit Diagnoses Not on filedocumented in this encounter Care Teams Engagement Executive Relationship Specialty Start Date End Date Annemarie Cui MD [address] [place] [address] [phone] PCP - General Internal Medicine 05/05/24 Agueda Cannon PharmD [address] [place] [address] [phone] Pharmacist Internal Medicine 07/19/24 documented as of this encounter
--- OUTSIDE RECORDS SUMMARY | 2025-08-05 09:49 | XMS_ITS | Encounter Summary ---
Author Organization [employer] Address [address] [facility] 7t [place] [address] Care Team Providers Care Bpm Analyst Name Role Phone Annemarie Cui MD Primary Care Provide r Agueda Cannon PharmD Unavailable +- [phone] Reason for Visit * Reason Comments Med Refill Encounter Details Date Type Department Care Team (Late st Contact Info) Description 03/15/2025 Refill [facility] [address] [place], [place] [phone] Annemarie Cui MD [address] [place], [place] [phone] Type 2 diabetes mellitus with hyperglycemia, with long-term current use of insulin ([facility]) Social History Tobacco Use Types Packs/Day Years [...] Description 08/23/2025 3:00 PM EDT Medication Management [facility] [address] [place] [address] Agueda Cannon PharmD [address] [place] [address] documented as of this encounter Goals Goal Patient Goal Type Associated Problems Recent Progress Patient-Stated? Author Hemoglobin A1c < 7 Result Component 11.2( 5 3:34 PM EDT) No Agueda Cannon, PharmD documented as of this encounter Visit Diagnoses Diagnosis Type 2 diabetes mellitus with hyperglycemia, with long-term current use of insulin ([facility]) documented in this encounter Additional Health Concerns Assessment Noted Time PHQ-9 Depression Total Score: 14 024 2:15 PM EDT documented as of this encounter Care Teams Bpm Analyst Relationship Specialty Start Date End Date Annemarie Cui MD [address] [place] [phone] PCP - General Internal Medicine 05/05/24 Agueda Cannon, Fernando [address] [place] [phone] Pharmacist Internal Medicine 07/19/24 documented as of this encounter
[2025-08-05 11:54] LABS: Alanine Aminotransferase 34 U/L (0-40); Albumin Level 4.8 g/dL (3.5-5.0); Alkaline Phosphatase 115 U/L (39-117); Anion Gap 12 (12-20); Aspartate Amino Transferase 29 U/L (5-37); Blood Urea Nitrogen 11 mg/dL (9-16); Calcium 9.4 mg/dL (8.4-10.2); Carbon Dioxide 29 mmol/L (22-29); Chloride 103 mmol/L (96-108); Cholesterol 124 mg/dL (<200); Estimated Glomerular Filt Rate > 60; HDL Cholesterol 49 mg/dL (>40); Potassium 4.1 mmol/L (3.3-5.1); Sodium 140 mmol/L (135-145); Total Protein 7.9 g/dL (6.5-8.0); Triglycerides 78 mg/dL (<150)
== END 2025-08-05 09:16 | disposition home or self-care (01) ==
LOC: HO.HHCL 09:15
PROVIDERS: PCP Internal Medicine; Visit Provider Internal Medicine
DX: E11.65 Type 2 diabetes mellitus with hyperglycemia (principal); Z79.4 Long term (current) use of insulin
CPT/HCPCS: 36415; 80053; 80061

== ENCOUNTER 2025-08-23 15:12 | Outpatient (REF) | payer MEDICAID, SELFPAY ==
[2025-08-23 16:13] LABS: Appearance Urine Clear; Glucose Urine UA >=1000 mg/dL (Negative); PH 6.5 (5.0-9.0); Specific Gravity - Urine >= 1.030 (1.005-1.025); UMIC TRIGGER UA YES
[2025-08-23 16:50] LABS: Microalbum/Creatinine Ratio Ur 73.8 ug/mg cr (<30)
--- OUTSIDE RECORDS SUMMARY | 2025-08-23 17:39 | XMS_ITS ---
Encounter Summary Created on: August 23, 2025
== END 2025-08-23 15:13 | disposition home or self-care (01) ==
LOC: HO.HHCL 15:12
PROVIDERS: Internal Medicine Hypertension Specialist; PCP Internal Medicine; Visit Provider Internal Medicine
DX: Z79.4 Long term (current) use of insulin (principal); E11.65 Type 2 diabetes mellitus with hyperglycemia
CPT/HCPCS: 81001; 82043; 82570

== ENCOUNTER 2025-08-24 13:20 | Outpatient (AMB) | payer MEDICAID, SELFPAY ==
[2025-08-24 13:24] VITALS: BP 80/46; PULSE 118; O2SAT 96; BMI 20.9
--- NOTE | 2025-08-24 13:24 | HO.NEPHOV ---
Vital Signs 08/24/25 13:24 Height 5 ft 10 in Weight 146 lb BMI 20.9 BP 80/46 L Blood Pressure Location Rt brachial Position Sitting Pulse 118 H Pulse Source Pulse Oximeter Pulse Oximetry (%) 96 Oxygen Delivery Method Room Air Intake Visit Reasons: FU-Conf Survey Technologist Required: No Accompanied by: Self / Same As Patient Allergies No Known Allergies Allergy (Verified 02/22/25 13:51) Medication List - Last Reconciled 08/24/25 by Boris Thompson MD amitriptyline 25 mg PO BEDTIME PRN atorvastatin 80 mg PO DAILY buspirone 15 mg PO BID empagliflozin-metformin 12.5-1,000 mg (Synjardy) 1 tab PO BID ertugliflozin 15 mg PO DAILY gabapentin 300 mg PO TID haloperidol 10 mg PO QAM hydroxyzine HCl 25 mg PO BID PRN insulin glargine (Lantus Solostar U-100 Insulin) 42 units subcut BEDTIME insulin lispro 4 units subcut QPM olanzapine 10 mg PO BEDTIME tirzepatide (weight loss) (Zepbound) 2.5 mg subcut QWEEK HPI Comments Details: 49-year-old man with a history of diabetes mellitus referred for hypotension. He has had hypotension since 2012. Up until recently he was on lisinopril 5 mg and clonidine 0.1 mg. This was stopped about 2 months ago. Despite this the blood pressure is still low and hence this referral. He denies any lightheadedness and he has no specific symptoms. Ongoing medical problems include history of longstanding diabetes mellitus. No history of hypertension. 12/21/2024. He underwent ambulatory blood pressure monitoring. He denies any new complaints today. Did not undergo blood test 02/22/25 No specific complaints No lighheadedness 08/24/25 History of Present Illness - The patient is a 49-year-old male presenting with follow-up for hypertension management. - Hypertension: Consistently low blood pressure, lisinopril discontinued. - Diabetes Mellitus: Blood glucose levels over 200 mg/dL, new injectable prescribed. - Diabetic Neuropathy: Foot pain with prolonged standing or walking, gabapentin increased. [facility] Medical History (Updated 08/24/25 @ 13:33 by Boris Thompson MD) Chronic pain of both shoulders Diabetic peripheral neuropathy Essential hypertension Hyperlipidemia Mood disorder Type 2 diabetes mellitus Family History Mother Diabetes type 2 Father Cancer Physical Exam Vital Signs: Last Vital Signs Pulse 118 H 08/24/25 13:24 BP 80/46 L 08/24/25 13:24 Pulse Ox 96 08/24/25 13:24 Oxygen Delivery Method Room Air 08/24/25 13:24 BMI result Body Mass Index 20.9 Comfortable Neck supple no JVD. Lungs entry equal no rales. Heart S1-S2 heard no gallop or rub. Abdomen soft nontender. Neuro alert awake oriented. No asterixis. Extremities no edema. Results Reviewed Nephrology Results: Sodium, (135-145) 140 mmol/L 08/05/25 Potassium, (3.3-5.1) 4.1 mmol/L 08/05/25 Chloride, (96-108) 103 mmol/L 08/05/25 Carbon Dioxide, (22-29) 29 mmol/L 08/05/25 BUN, (9-16) 11 mg/dL 08/05/25 Creatinine, (0.5-1.4) 0.88 mg/dL 08/05/25 Calcium, (8.4-10.2) 9.4 mg/dL 08/05/25 Urine Protein, (Neg-Trace) Trace mg/dL 08/23/25 Urine Creatinine 104.29 mg/dL 08/23/25 Assessment & Plan Assessment & Plan (1) Hypotension: Code(s): I95.9 - Hypotension, unspecified Category: Medical Plan 49-year-old man with longstanding diabetes mellitus with asymptomatic hypotension. Alfred most likely has autonomic dysfunction. This may be due to underlying diabetes mellitus. However other causes including adrenal insufficiency should be ruled out. 24 hour ambulatory blood pressure monitoring did not reveal any significant hypotension. Agree with holding lisinopril and clonidine. No need for any antihypertensive medications. Check cortisol levels. - Done on 02/17 and still pending. Discussed orthostatic precautions. Urine SG is > 1.030 Encourged to drink more fluids Despite low blood pressure readings he is asymptomatic. Shall continue to watch him closely. If he is symptomatic then we can add midodrine 2.5 mg in the morning and titrate the dose as needed. He should stay on a regular salt diet. 08/24/25 1. Chronic asymptomatic Hypotension with microalbuminuria of 73 in a setting of DM - Lisinopril discontinued due to low blood pressure. - Advised to maintain adequate hydration. REgualr salt diet for now 2. Diabetes Mellitus - New injectable medication prescribed, pending initiation. Maintian A1c< 7% 3. Diabetic Neuropathy - Gabapentin dosage increased to manage neuropathic pain. Patient Instructions - Continue to monitor blood pressure regularly. - Maintain adequate hydration. - Monitor blood glucose levels and report any significant changes. Orders: Orders Creatinine Urine Today E11.9 - Type 2 diabetes mellitus without complications, I95.9 - Hypotension, unspecified UA and rflx microscopic Today E11.9 - Type 2 diabetes mellitus without complications, I95.9 - Hypotension, unspecified Total Protein Urine Random Today E11.9 - Type 2 diabetes mellitus without complications, I95.9 - Hypotension, unspecified Basic Metabolic Panel Today I95.9 - Hypotension, unspecified Basic Metabolic Panel 1 Year E11.9 - Type 2 diabetes mellitus without complications, I95.9 - Hypotension, unspecified Coding Level of Care Code Est Pt Level 4 (82911) Diagnoses Hypotension I95.9
--- OUTSIDE RECORDS SUMMARY | 2025-08-24 16:22 | XMS_ITS | Encounter Summary ---
Author Organization [employer] Address [address] 7[address] [place] [address] Care Team Providers Care Dog Breeder Name Role Phone Annemarie Cui MD Primary Care Provide r Agueda Cannon PharmD Unavailable [phone] Encounter Details Date Type Department Care Team ([facility] st Contact Info) Description 10/13/2024 Orders Only [facility] [address] [place], [place] [phone] Annemarie Cui MD [address] [place], [place] [phone] Social History Tobacco Use Types Packs/Day Years [...] Care Team (Late st Contact Info) Description 09/20/2025 3:00 PM EDT Medication Management [address] [address] Agueda Cannon, PharmD [address] [place] [phone] 11/01/2025 1:45 PM EST Office Visit [facility] [address] [place] [phone] Annemarie Cui MD [address] [place] [phone] documented as of this encounter Goals Goal [...] documented as of this encounter Care Teams Dog Breeder Relationship Specialty Start Date End Date Annemarie Cui MD [address] [place] [address] [place] [address] PCP - General Internal Medicine 05/05/24 Agueda Cannon, Fernando [address] [place] [address] Pharmacist Internal Medicine 07/19/24 documented as of this encounter
--- OUTSIDE RECORDS SUMMARY | 2025-08-24 16:22 | XMS_ITS | Encounter Summary ---
Author Organization [employer] Address [address] [facility] 7t [place] [address] Care Team Providers Care Clinical Pharmacy Manager Name Role Phone Annemarie Cui MD Primary Care Provide r Agueda Cannon PharmD Unavailable [phone]- [phone] Reason for Visit * Reason Comments Med Refill Encounter Details Date Type Department Care Team (Late st Contact Info) Description 03/15/2025 Refill [facility] [address] [place], [place] [phone] Annemarie Cui MD [address], [place] [phone] Type 2 diabetes mellitus with hyperglycemia, with long-term current use of insulin ([facility]) Social History Tobacco Use Types Packs/Day [...] Description 09/20/2025 3:00 PM EDT Medication Management [facility] [address] [place] [address] Agueda Cannon PharmD [address] [place] [address] 11/01/2025 1:45 PM EST Office Visit [facility] [address] [place] [address] Annemarie Cui MD [address] [place] [address] documented as of this encounter Goals Goal Patient Goal Type Associated Problems Recent Progress Patient-Stated? Author Hemoglobin A1c < 7 Result Component 11.2( 5 3:34 PM EDT) No Agueda Cannon, PharmSaul documented as of this encounter Visit Diagnoses Diagnosis Type 2 diabetes mellitus with hyperglycemia, with long-term current use of insulin ([facility]) documented in this encounter Additional Health Concerns Assessment Noted Time PHQ-9 Depression Total Score: 14 024 2:15 PM EDT documented as of this encounter Care Teams Clinical Pharmacy Manager Relationship Specialty Start Date End Date Annemarie Cui MD [address] [place] [address] PCP - General Internal Medicine 05/05/24 Agueda Cannon, Fernando [address] [place] [address] Pharmacist Internal Medicine 07/19/24 documented as of this encounter
--- OUTSIDE RECORDS SUMMARY | 2025-08-24 16:22 | XMS_ITS | Encounter Summary ---
Author Organization [employer] Address [address] [facility] 7t [place] [address] Care Team Providers Care Pilot Fuel Engineer Name Role Phone Annemarie Cui MD Primary Care Provide r Agueda Cannon PharmD Unavailable [phone]- [phone] Reason for Referral * Consultation (Routine) - Authorized Specialty Diagnoses / Procedures Referred By Contac t Referred To Contact Pharmacy Diagnoses Type 2 diabetes mellitus with hyperglycemia, with long-term current use of insulin (CMS/HCC) Essential hypertension Annemarie Cui MD [address] [place] [address] Phone: tel: fax: Referral ID Status Reason Start Date Expiration Date Visits Requested Visits Authorized [id number] Authorized Consult and Treat 08/24/2025 08/24/2026 6 6 Encounter Details Date Type Department Care Team (Late st Contact Info) Description 08/24/2025 Orders Only [facility] [address] [place] [address] [phone] Annemarie Cui MD [address] [place] [address] Type 2 diabetes mellitus with hyperglycemia, with long-term current use of insulin (CMS/HCC) (Primary Dx); Essential hypertension Social History Tobacco Use Types Packs/Day Years [...] Description 09/20/2025 3:00 PM EDT Medication Management [facility] [address] [place] [phone] Agueda Cannon, PharmD [address] [place] [address] 11/01/2025 1:45 PM EST Office Visit [facility] [address] [place] [address] Annemarie Cui MD [address] [place] [address] Scheduled Referrals Name Type Priority Associated Diagnoses Orde r Schedule Referral to Pharmacy CDTM Outpatient Referral Routine Type 2 diabetes mellitus with hyperglycemia, with long-term current use of insulin ([facility]) Essential hypertension Ordered: 08/24/2025 documented as of this encounter Goals Goal Patient Goal Type Associated Problems Recent Progress Patient-Stated? Author Hemoglobin A1c < 7 Result Component 11.2( 5 3:34 PM EDT) No Agueda Cannon, Fernando documented as of this encounter Visit Diagnoses Diagnosis Type 2 diabetes mellitus with hyperglycemia, with long-term current use of insulin ([facility])- Primary Essential hypertension Unspecified essential hypertension documented in this encounter Additional Health Concerns Assessment Noted Time PHQ-9 Depression Total Score: 17 025 3:38 PM EDT documented as of this encounter Care Teams Pilot Fuel Engineer Relationship Specialty Start Date End Date Annemarie Cui MD [address] [place] [address] PCP - General Internal Medicine 05/05/24 Agueda Cannon, RadhaD [address] [place] [phone] Pharmacist Internal Medicine 07/19/24 documented as of this encounter
--- OUTSIDE RECORDS SUMMARY | 2025-08-24 16:22 | XMS_ITS | Encounter Summary ---
Author Organization [employer] Address [address] [facility] [address] 7t [place] [address] Care Team Providers Care Lumber Loader Name Role Phone Annemarie Cui MD Primary Care Provide r Agueda Cannon PharmD Unavailable [phone]- [phone] Encounter Details Date Type Department Care Team (Late st Contact Info) Description 08/23/2025 Orders Only [facility]NAL DATA DEPARTMENT Provider, Generic External Data Social History Tobacco Use Types Packs/Day Years [...] Description 09/20/2025 3:00 PM EDT Medication Management [address] [address] Agueda Cannon PharmD [address] [place] [address] 11/01/2025 1:45 PM EST Office Visit [facility]INE [address] [place] [address] Annemarie Cui MD [address] [place] [phone] documented as of this encounter Goals Goal Patient Goal Type Associated Problems Recent Progress Patient-Stated? Author Hemoglobin A1c < 7 Result Component 11.2( 3:34 PM EDT) No Agueda Cannon, PharmSaul documented as of this encounter Procedures Procedure Name Priority Date/Time Associated Diagnosis Comments URINALYSIS, COMPLETE Routine 08/23/2025 3:19 PM EDT documented in this encounter Results * (ABNORMAL) Urinalysis Complete (08/23/2025 3:19 PM EDT) Color Urine Yellow [facility] Appearance Urine Clear [facility] PH 6.5 5.0 - 9.0 [facility] Glucose Urine UA >=1000(A) Negative mg/dL [facility] Urine Blood Negative Negative [facility] Specific [place] - Urine >=1.030(H) 1.005 - 1.025 [facility] Urine Protein Trace Neg-Trace mg/dL [facility] Urine Ketones Negative Negative mg/dL [facility] Nitrite Urine Negative Negative [facility] Leukocyte Esterase Urine Negative Negative [facility] RBC Urine 0-2 0 - 2 /HPF [facility] Urine WBC 0-5 0 - 5 /HPF [facility] Urine Squamous Epithelial Cell 0-2 0 - 2 /HPF [facility] Urine Bacteria None Seen None Seen [facility] Hyaline Casts, Urine 0-2 0 - 2 /LPF [facility] 08/23/2025 3:19 PM EDT 08/23/2025 4:03 PM EDT us Generic External Data Provider LAB URINE ORDERAB LES Final Result Performing Organization Address City/State/[facility] Co de Phone Number [facility] [address] [place] [address] [phone] documented in this encounter Visit Diagnoses Not on filedocumented in this encounter Additional Health Concerns Assessment Noted Time PHQ-9 Depression Total Score: 17 025 3:38 PM EDT documented as of this encounter Care Teams Lumber Loader Relationship Specialty Start Date End Date Annemarie Cui MD [address] [place] [address] PCP - General Internal Medicine 05/05/24 Agueda Cannon PharmD [address] [place] [address] Pharmacist Internal Medicine 07/19/24 documented as of this encounter
--- OUTSIDE RECORDS SUMMARY | 2025-08-24 16:22 | XMS_ITS | Encounter Summary ---
Author Organization [employer] Address [address] [facility] [address] 7t [place] [address] Care Team Providers Care Grain Farmworker Name Role Phone Annemarie Cui MD Primary Care Provide r Agueda Cannon PharmD Unavailable +- [phone] Encounter Details Date Type Department Care Team (Latest Contact Info) Description 08/23/2025 Travel Social History Tobacco Use Types Packs/Day Years [...] Description 09/20/2025 3:00 PM EDT Medication Management [facility] [address] [place] [phone] Agueda Cannon PharmD [address] [place] [address] 11/01/2025 1:45 PM EST Office Visit [facility] [address] [place] [phone] Annemarie Cui MD [address] [place] [phone] documented as of this encounter Goals Goal [...] documented as of this encounter Care Teams Grain Farmworker Relationship Specialty Start Date End Date Annemarie Cui MD [address] [place] [address] PCP - General Internal Medicine 05/05/24 Agueda Cannon PharmD [address] [place] [phone] Pharmacist Internal Medicine 07/19/24 documented as of this encounter
--- OUTSIDE RECORDS SUMMARY | 2025-08-24 16:22 | XMS_ITS | Encounter Summary ---
Author Organization [employer] Address [address] [facility] [facility] [address] 7t [place] [address] Care Team Providers Care Obstetrics/Gynecology Nurse Name Role Phone Annemarie Cui MD Primary Care Provide r Agueda Cannon PharmD Unavailable [phone] Encounter Details Date Type Department Care Team ([facility] st Contact Info) Description 08/23/2025 Telephone [facility] [address] [place], [place] [phone] Agueda Cannon, PharmD [address] [place], [place] [phone] Social History Tobacco Use Types Packs/Day Years [...] encounter Miscellaneous Notes * Telephone Encounter - Agueda Cannon PharmD - 08/23/2025 3:56 PM EDT Please consider providing a new referral for CDTM DM2 services to continue as current referral has . Thank you! documented in this encounter Plan of Treatment Upcoming Encounters Date Type Department Care Team (Late st Contact Info) Description 09/20/2025 3:00 PM EDT Medication Management [facility] [address] [place] [phone] Agueda Cannon PharmD [address] [place] [phone] 11/01/2025 1:45 PM EST Office Visit [facility] [address] [place] [address] Annemarie Cui MD [address] [place] [address] documented as of this encounter Goals Goal Patient Goal Type Associated Problems Recent Progress Patient-Stated? Author Hemoglobin A1c < 7 Result Component 11.2(08/22/202 5 3:34 PM EDT) No Agueda Cannon, PharmD documented as of this encounter Visit Diagnoses Not on filedocumented in this encounter Additional Health Concerns Assessment Noted Time PHQ-9 Depression Total Score: 17 025 3:38 PM EDT documented as of this encounter Care Teams Obstetrics/Gynecology Nurse Relationship Specialty Start Date End Date Annemarie Cui MD [address] [place] [address] PCP - General Internal Medicine 05/05/24 Agueda Cannon, PharmD [address] [place] [address] Pharmacist Internal Medicine 07/19/24 documented as of this encounter
--- OUTSIDE RECORDS SUMMARY | 2025-08-24 16:22 | XMS_ITS | Encounter Summary ---
Author Organization [employer] Address [address] [facility] [address]t [place] [address] Care Team Providers Care Composite Science Teacher Name Role Phone [facility] Primary Care Provider [phone] Annemarie Bautista MD Primary Care Pro vider Annemarie Cui MD Primary Care Provide r Agueda Cannon PharmD Unavailable [phone] Reason for Visit * Reason Onset Date Comments requesting a call back 12/12/2022 Encounter Details Date Type Department Care Team (Late st Contact Info) Description 12/12/2022 Telephone [facility] [address] [place], [place] [phone] [facility] [address] [place], [place] [phone] requesting a call back Social History Tobacco [...] not get involved with disability determination at [facility], but left a message so they can give usmore information if we can even help them. Pending call back * Telephone Encounter - Brien Berry - 12/12/2022 12:52 PM EST Tc from Dr Arias with disability determination services requesting a call back regarding pt Please contact Dr Arias at [phone] documented in this encounter Plan of Treatment Upcoming Encounters Date Type Department Care Team (Late st Contact Info) Description 09/20/2025 3:00 PM EDT Medication Management [facility] [address] [place] [phone] Agueda Cannon, RadhaD [address] [place] [address] 11/01/2025 1:45 PM EST Office Visit [facility] [address] [place] [phone] Annemarie Cui MD [address] [place] [phone] documented as of this encounter Visit Diagnoses Not on filedocumented in this encounter Care Teams Composite Science Teacher Relationship Specialty Start Date End Date Sandra Moreno FNP [address] [place] [phone] PCP - General Family Medicine 07/26/22 05/02/23 Annemarie Bautista MD [address] [place] [address] PCP - General Internal Medicine 05/03/23 04/16/24 Annemarie Cui MD [address] [place] [phone] PCP - General Internal Medicine 05/05/24 Agueda Cannon, RadhaD [address] [place] [phone] Pharmacist Internal Medicine 07/19/24 documented as of this encounter
--- OUTSIDE RECORDS SUMMARY | 2025-08-24 16:22 | XMS_ITS | Encounter Summary ---
Author Organization [employer] Address [address] [facility] 7t [place] [address] Care Team Providers Care Publications Writer Name Role Phone Annemarie Cui MD Primary Care Provide r Agueda Cannon PharmD Unavailable [phone]- [phone] Reason for Visit * Reason Onset Date Comments Med Change Request 05/05/2024 Encounter Details Date Type Department Care Team (Late st Contact Info) Description 05/05/2024 Telephone [facility] [address] [place], [place] [phone] Annemarie Cui MD [address] [place], [place] [phone] Med Change Request Social History Tobacco Use [...] Description 09/20/2025 3:00 PM EDT Medication Management [address] [phone] Agueda Cannon PharmD [address] [place] [address] 11/01/2025 1:45 PM EST Office Visit [address] [phone] Annemarie Cui MD [address] [place] [phone] documented as of this encounter Visit Diagnoses Not on filedocumented in this encounter Care Teams Publications Writer Relationship Specialty Start Date End Date Annemarie Cui MD [address] [place] [address] [phone] PCP - General Internal Medicine 05/05/24 Agueda Cannon PharmD [address] [place] [address] [phone] Pharmacist Internal Medicine 07/19/24 documented as of this encounter
--- OUTSIDE RECORDS SUMMARY | 2025-08-24 16:22 | XMS_ITS | Encounter Summary ---
Author Organization [employer] Address [address] [facility] [address] [place] [address] Care Team Providers Care Warehouse Foreman Name Role Phone Annemarie Cui MD Primary Care Provide r Agueda Cannon PharmD Unavailable [phone]- [phone] Reason for Visit * Reason Comments Med Refill Encounter Details Date Type Department Care Team (Late st Contact Info) Description 04/07/2025 Refill [facility] [address] [place], [place] [phone] Ragini Boyle FNP [address] [place], [place] [phone] Social History Tobacco Use Types Packs/Day Years [...] Description 09/20/2025 3:00 PM EDT Medication Management [facility] [address] [place] [phone] Agueda Cannon PharmD [address] [place] [address] 11/01/2025 1:45 PM EST Office Visit [facility] [address] [place] [phone] Annemarie Cui MD [address] [place] [address] documented as of this encounter Goals Goal Patient Goal Type Associated Problems Recent Progress Patient-Stated? Author Hemoglobin A1c < 7 Result Component 11.2( 3:34 PM EDT) No Agueda Cannon, PharmD documented as of this encounter Visit Diagnoses Not on filedocumented in this encounter Additional Health Concerns Assessment Noted Time PHQ-9 Depression Total Score: 14 024 2:15 PM EDT documented as of this encounter Care Teams Warehouse Foreman Relationship Specialty Start Date End Date Annemarie Cui MD [address] [place] [address] PCP - General Internal Medicine 05/05/24 Agueda Cannon, Fernando [address] [place] [address] Pharmacist Internal Medicine 07/19/24 documented as of this encounter
--- OUTSIDE RECORDS SUMMARY | 2025-08-24 16:22 | XMS_ITS | Clinical Summary ---
Author Organization [employer] Address [address] [facility] [address] [place] [address] Care Team Providers Care Refrigeration Unit Repairer Name Role Phone Annemarie Cui MD Primary Care Provide r Agueda Cannon PharmD Unavailable [phone] Allergies Active Allergy Reactions Criticality Noted Date Comments Dulaglutide 11/16/2021 Other Reaction(s): GI Problems Medications * This document contains information received from the source organization and may not represent a complete record from that organization. gabapentin (Neurontin) 100 MG capsule TAKE 1 [...] SUGAR FOUR TIMES DAILY FOR 30 DAYS 024 Active OLANZapine (ZyPREXA) 5 MG tablet Take 1 tablet by mouth in the morning. 024 Active hydrOXYzine HCl (Atarax) 25 MG tablet Take 1 tablet by mouth 2 times daily. 024 Active atorvastatin (Lipitor) 80 MG tabletIndication s:Hyperlipidemia , unspecified hyperlipidemia type Take 1 tablet by mouth once daily 90 tablet 3 025 Active empagliflozin-me tFORMIN (Synjardy) 12.5-1000 MGIndications:Ty pe 2 diabetes mellitus with hyperglycemia, with long-term current use of insulin ([facility]) Take 1 tablet by mouth twice daily 180 tablet 3 Active Icosapent Ethyl (Vascepa) 1 g capsuleIndicatio ns:Hyperlipidemi a, unspecified hyperlipidemia type Take 2 capsules (2 g) by mouth with breakfast and with evening meal. 360 capsule Active glucose (Glutose) 40 % gel oral gelIndications:T ype 2 diabetes mellitus with hyperglycemia, with long-term current use of insulin ([facility]) Take 15 g by mouth if needed for low blood sugar. 45 g 11 Active Continuous Glucose Engineering Job Titles (FreeStyle Gloria 2 [place]) deviceIndication s:Type 2 diabetes mellitus with hyperglycemia, with long-term current use of insulin ([facility]) SCAN SENSOR EVERY 8 HOURS 1 each Active cholecalciferol (Vitamin D-3) 25 MCG (1000 UT) tabletIndication s:Vitamin D deficiency Take 1 tablet (25 mcg) by mouth Once per day. 90 tablet 1 Active pen needle 32G x 4 mm miscIndications: Type 2 diabetes mellitus with hyperglycemia, with long-term current use of insulin ([facility]) Use as instructed with insulin administration three times daily 100 each 3 025 2025 Active Continuous Glucose Sensor (FreeStyle Gloria 2 Plus Sensor) miscIndications: Type 2 diabetes mellitus with hyperglycemia, with long-term current use of insulin ([facility]) 1 each every 8 (eight) hours. 2 each Active insulin glargine (Lantus SoloStar) 100 UNIT/ML penIndications:T ype 2 diabetes mellitus with hyperglycemia, with long-term current use of insulin ([facility]) ADMINISTER SUBCUTANEOUSLY 48 UNITS ONCE DAILY AT BEDTIME 15 mL 3 025 Active insulin lispro (HumaLOG KWIKPEN) 100 UNIT/ML injectionIndicat ions:Type 2 diabetes mellitus with hyperglycemia, with long-term current use of insulin ([facility]) Inject subcutaneously twice daily before meals using sliding scale. Do not use if skipping meal. 15 mL 3 025 Active gabapentin (Neurontin) 300 MG capsuleIndicatio ns:Diabetic peripheral neuropathy ([facility]) Take 1 capsule (300 mg) by mouth 3 times daily. 90 capsule 2 025 2025 Active amitriptyline (Elavil) 25 MG tablet TAKE 1 TABLET BY MOUTH EVERY NIGHT AT BEDTIME NEEDED FOR SLEEP.DO NOT TAKE MORE THAN 2 AT ONCE Active haloperidol (Haldol) 10 MG tablet Take 10 mg by mouth in the morning. Active acetone, urine, test stripIndications :Type 2 diabetes mellitus with hyperglycemia, with long-term current use of insulin ([facility]) Use as directed to check for ketones, if needed 25 each 3 Active Tirzepatide (Mounjaro) 2.5 MG/0.5ML solution auto-injectorInd ications:Type 2 diabetes mellitus with hyperglycemia, with long-term current use of insulin ([facility]) Inject 2.5 mg under the skin every 7 (seven) days. 2 mL Active haloperidol (Haldol) 5 MG tablet Take 5 mg by mouth in the morning. 024 2024 Discontinued(M ed list cleanup (will not trigger notification to Pharmacy)) Active Problems Problem Noted Date Diagnosed Date [...] 8 hours, I also refer him to rn care transition Resolved Problems Problem Noted Date Diagnosed Date [...] without first consulting health care provider Encounters * This document contains information received from the source organization and may not represent a complete record from that organization. Date Type Department Care Team Description 08/24/2025 Orders Only [facility] [address] [place] [address] Annemarie Ciu MD Type 2 diabetes mellitus with hyperglycemia, with long-term current use of insulin ([facility]) (Primary Dx); Essential hypertension 08/23/2025 Orders Only GENERIC EXTERNAL DATA DEPARTMENT Provider, Generic External Data 08/23/2025 Telephone [facility] [address] [place] [address] Agueda Cannon PharmD 08/23/2025 Travel 08/22/2025 Travel 08/12/2025 Telephone [facility] [address] [place] [address] Annemarie Cui MD NOV RECALL 08/09/[address] [address] Annemarie Cui MD 07/23/2025 3:30 PM EDT Office Visit [address] [address] Annemarie Cui MD Diabetic peripheral neuropathy ([facility]) (Primary Dx); Type 2 diabetes mellitus with hyperglycemia, with long-term current use of insulin (CMS/HCC); Screening for colon cancer 07/23/2025 Travel 07/22/2025 Refill [facility] [address] [place] [address] Annemarie Cui MD Type 2 diabetes mellitus with hyperglycemia, with long-term current use of insulin (CMS/HCC) 07/21/2025 Travel 07/20/2025 Telephone [facility] [address] [place] [address] Annemarie Cui MD Chart Prep 07/20/2025 Travel 07/16/2025 Patient Outreach [address] [phone] Annemaire Cui MD Pre-visit Planning (Pre-visit planning - LVM ) 07/16/2025 Travel 07/09/2025 Travel 06/23/[address] [address] Annemarie Cui MD from Last 3 Months Immunizations Immunization Administration [...] the past 12 months, has t he [employer], gas, oil or water company threatened to [...] Sign Reading Time Taken Comments Blood Pressure 86/60 08/23/2025 3:04 PM EDT Pulse 98 08/23/2025 3:04 PM EDT Temperature 36.8 C (98.3 F) [...] Description 09/20/2025 3:00 PM EDT Medication Management [facility] [address] [place] [phone] Agueda Cannon, PharmD [address] [place] [phone] 11/01/2025 1:45 PM EST Office Visit [facility] [address] [place] [phone] Annemarie Cui MD [address] [place] [address] Health Maintenance Due Date Last Done Comments CT Colonography 1975 Colonoscopy 1975 FIT 1975 Sigmoidoscopy 1975 Diabetes: Foot Exam 1985 Family Planning (PISQ) 1990 Pneumococcal Vaccine: Pediatrics (0 to 5 Years) and At-Risk Patients (6 to 49) Years (2 of 2 - PCV) 03/13/2023 03/13/2022, 03/10/2016 SDOH Screening 06/16/2025 06/16/2024 COVID-19 Vaccine ( season) 2025 12/19/2021, 01/25/2021, 12/28/2020 Influenza Vaccine (#1) 2025 , 09/20/2020, 09/20/2017, Additional history exists Diabetes: Hemoglobin A1C 10/23/2025 025, 07/21/2025, 03/17/2025, Additional history exists Zoster Vaccines (1 of 2) 2025 Depression Monitoring 01/23/2026 07/23/2025, 025 DTaP/Tdap/Td Vaccines (2 - Td or Tdap) 03/10/2026 03/10/2016 Disability Screening 07/16/2026 07/16/2025 Alcohol/Substance Use Screening 07/23/2026 07/23/2025 Tobacco Screening 07/23/2026 07/23/2025 FOBT 07/29/2026 07/29/2025 Lipid Panel 08/05/2026 08/05/2025, 10/02, 07/15/2024, Additional history exists Diabetes: Urine Protein Screening 08/23/2026 08/23/2025, 08/10/2021 Eye Exam 03/23/2027 03/23/2025, 03/03, 03/23/2025, Additional history exists Colorectal Cancer Screening 07/29/2028 FIT DNA/Cologuard 07/29/2028 07/29/2025 RSV Patients and Patients Aged 60 years [...] URINALYSIS, COMPLETE Routine 08/23/2025 3:19 PM EDT ALBUMIN, RANDOM URINE W/CREATININE Routine 08/23/2025 3:19 PM EDT Type 2 diabetes mellitus with hyperglycemia, with long-term current use of insulin (CMS/HCC) COMPREHENSIVE METABOLIC PANEL Routine 08/05/2025 9:19 AM EDT Type 2 diabetes mellitus with hyperglycemia, with long-term current use of insulin (CMS/HCC) LIPID PANEL, STANDARD Routine 08/05/2025 9:19 AM EDT Type 2 diabetes mellitus with hyperglycemia, with long-term current use of insulin (CMS/HCC) LAB COLOGUARD COLON CANCER SCREEN Routine 07/29/2025 7:00 AM EDT Screening for colon cancer POCT GLYCATED HEMOGLOBIN, TOTAL Routine 07/23/2025 3:34 PM EDT Type 2 diabetes mellitus with hyperglycemia, with long-term current use of insulin (CMS/HCC) POCT GLUCOSE Routine 07/23/2025 3:34 PM EDT Type 2 diabetes mellitus with hyperglycemia, with long-term current use of insulin (CMS/HCC) POCT GLYCATED HEMOGLOBIN, TOTAL Routine 07/21/2025 3:38 PM EDT Type 2 diabetes mellitus with hyperglycemia, with long-term current use of insulin (CMS/HCC) HEPATITIS C VIRAL RNA, QUANTITATIVE, REAL-TIME PCR Routine 07/15/2024 8:48 AM EDT Health care maintenance HIV 1/2 ANTIGEN/ANTIBODY, FOURTH GENERATION W/RFL Routine 07/15/2024 8:48 AM EDT Health care maintenance from Last 3 Months or Most Recently Relevant to Health Maintenance Results * (ABNORMAL) Albumin, Random Urine W/Creatinine (08/23/2025 3:19 PM EDT) Creatinine, Urine 104.29 mg/dL [facility] Microalbumin Urine 77.0 mg/L H [facility] Microalbum Creatinine Ratio Ur 73.8(H) <30 ug/mg cr [facility] Comment:Albumin/Creatinine R atio Reference Ranges: Normal: < 30 ug/mg creatinine Microalbuminuria: 30 - 300 ug/mg creatinineClinical Albuminuria: > 300 ug/mg creatinine Urine (Urine, Random) 08/23/2025 3:19 PM EDT 08/23/2025 4:03 PM EDT us Annemarie Wisdom MD LAB URINE ORDERABLES Final Result [facility] [address] [place] [address] [phone] * (ABNORMAL) Urinalysis Complete (08/23/2025 3:19 PM EDT) Color Urine Yellow [facility] Appearance Urine Clear [facility] PH 6.5 5.0 - 9.0 [facility] Glucose Urine UA >=1000(A) Negative mg/dL [facility] Urine Blood Negative Negative [facility] Specific Gary - Urine >=1.030(H) 1.005 - 1.025 [facility] Urine Protein Trace Neg-Trace mg/dL [facility] Urine Ketones Negative Negative mg/dL [facility] Nitrite Urine Negative Negative [facility] Leukocyte Esterase Urine Negative Negative [facility] RBC Urine 0-2 0 - 2 /HPF [facility] Urine WBC 0-5 0 - 5 /HPF [facility] Urine Squamous Epithelial Cell 0-2 0 - 2 /HPF [facility] Urine Bacteria None Seen None Seen [facility] Hyaline Casts, Urine 0-2 0 - 2 /LPF [facility] 08/23/2025 3:19 PM EDT 08/23/2025 4:03 PM EDT us Generic External Data Provider LAB URINE ORDERAB LES Final Result Performing Organization Address City/[facility]/ZIP Co de Phone Number [facility] [address] [place] [address] [phone] * Lipid Panel, Standard (08/05/2025 9:19 AM EDT) Triglycerides 78 <150 mg/dL [facility] Comment:Desirable Triglyceri de: less than 150 mg/dLBorderline High Triglyceride 150-199 mg/dLHigh Triglyceride: 200-499 mg/dLVery High Triglyceride: greater than or equal to 5OO mg/dL Cholesterol 124 <200 mg/dL [facility] Comment:Desirable Cholestero l: less than 200 mg/dLBorderline High Cholesterol: 200-239 mg/dLHigh Cholesterol: greater than 239 mg/dL LDL Cholesterol Calculated 60 <100 mg/dL [facility] Comment:Desirable LDL: less than 100 mg/dLNear Optimal/Above Optimal LDL: 110- 129 mg/dLBorderline High LDL: 130-159 mg/dLHigh LDL: 160-189 mg/dLVery High LDL: greater than or equal to 190 mg/dL HDL Cholesterol 49 >40 mg/dL [facility] Comment:Desirable HDL: great er than 40 mg/dL Note: This HDL assay may give artificially low results in patients with liver disease. Blood Venous blood specimen / Unknown 08/05/2025 9:19 AM EDT 08/05/2025 11:10 AM EDT us Annemarie Wisdom MD LAB BLOOD ORDERABLES Final Result [facility] [address] [place] [phone] * (ABNORMAL) Comprehensive Metabolic Panel (08/05/2025 9:19 AM EDT) Sodium 140 135 - 145 mmol/L [facility] Potassium 4.1 3.3 - 5.1 mmol/L [facility] Chloride 103 96 - 108 mmol/L [facility] Carbon Dioxide 29 22 - 29 mmol/L [facility] Anion Gap 12 12 - 20 [facility] Urea Nitrogen (BUN) 11 9 - 16 mg/dL [facility] Creatinine, Serum 0.88 0.5 - 1.4 mg/dL [facility] Estimated Glomerular Filt Rate >60 [facility] Comment:Chronic Kidney Disea se: Estimated GFR < 60 mL/min/[id number] Kidney Disease: Estimated GFR < 15 mL/min/1.73m2 Glucose 253(H) 60 - 115 mg/dL [facility] Calcium 9.4 8.4 - 10.2 mg/dL [facility] Bilirubin, Total 1.7(H) 0.0 - 1.0 mg/dL [facility] Aspartate Amino Transferase 29 5 - 37 U/L [facility] Alanine Aminotransferase 34 0 - 40 U/L [facility] Total Protein 7.9 6.5 - 8.0 g/dL [facility] Albumin Level 4.8 3.5 - 5.0 g/dL [facility] Alkaline Phosphatase 115 39 - 117 U/L [facility] Blood Venous blood specimen / Unknown 08/05/2025 9:19 AM EDT 08/05/2025 11:10 AM EDT us Annemarie Wisdom MD LAB BLOOD ORDERABLES Final Result [facility] [address] [place] [phone] * Cologuard?? colon cancer screening (07/29/2025 7:00 AM EDT) Cologuard Result Negative Negative 08/05/20 4:17 PM EDT [employer] (CLIA #:[id number]) Comment: The Cologuard (TM) test was performed on this specimen. NEGATIVE TEST RESULT. A negative Cologuard result indicates a low likelihood that a colorectal cancer (CRC) or advanced adenoma (adenomatous polyps with more advanced pre-malignant features) is present. The chance that a person with a negative Cologuard test has a colorectal cancer is less than 1 in 1500 (negative predictive value >99.9%) or has an advanced adenoma is less than 5.3% (negative predictive value 94.7%). These data are based on a prospective cross-sectional study of 10,000 individuals at average risk for colorectal cancer who were screened with both Cologuard and colonoscopy. (Albert Madrigal et al, N Engl J Med 2014;370(14):1286- 1297) The normal value (reference range) for this assay is negative. COLOGUARD RE-SCREENING RECOMMENDATION: Periodic colorectal cancer screening is an important part of preventive healthcare for asymptomatic individuals at average risk for colorectal cancer. Following a negative Cologuard result, the [place] [employer] and U.S. Multi-Society Task Force screening guidelines recommend a Cologuard re-screening interval of 3 years. References: [place] [employer] Guideline for Colorectal Cancer Screening: https://www.cancer.org/cancer/ozljw-qsxxzy-hxvvzh/ivkcptszg-fktrurfhc-flextwp/ac s-rec ommendations.html.; John ESCAMILLA, Beckie SANZ, Mukul WoodsK, Colorectal Cancer Screening: Recommendations for Physicians and Patients from the U.S. Multi-Society Task Force on Colorectal Cancer Screening , Am J Gastroenterology 2017; 112:9217-9156. TEST DESCRIPTION: Composite algorithmic analysis of stool DNA-biomarkers with hemoglobin immunoassay. Quantitative values of individual biomarkers are not reportable and are not associated with individual biomarker result reference ranges. Cologuard is intended for colorectal cancer screening of adults of either sex, 45 years or older, who are at average-risk for colorectal cancer (CRC). Cologuard has been approved for use by the U.S. FDA. The performance of Cologuard was established in a cross sectional study of average-risk adults aged 50-84. Cologuard performance in patients ages 45 to 49 years was estimated by sub-group analysis of near-age groups. Colonoscopies performed for a positive result may find as the most clinically significant lesion: colorectal cancer [4.0%], advanced adenoma (including sessile serrated polyps greater than or equal to 1cm diameter) [20%] or non- advanced adenoma [31%]; or no colorectal neoplasia [45%]. These estimates are derived from a prospective cross-sectional screening study of 10,000 individuals at average risk for colorectal cancer who were screened with both Cologuard and colonoscopy. (Albert Cintron. et al, N Engl J Med 2014;370(14):5053-4007.) Cologuard may produce a false negative or false positive result (no colorectal cancer or precancerous polyp present at colonoscopy follow up). A negative Cologuard test result does not guarantee the absence of CRC or advanced adenoma (pre-cancer). The current Cologuard screening interval is every 3 years. ([place] [employer] and U.S. Multi-Society Task Force). Cologuard performance data in a 10,000 patient pivotal study using colonoscopy as the reference method can be accessed at the following location: www.[employer]/results. Additional description of the Cologuard test process, warnings and precautions can be found at www.[employer].com. Stool specimen (specimen) 07/29/2025 7:00 AM EDT 07/30/2025 2:07 PM EDT Annemarie Wisdom MD LAB MOLECULAR DIAGNOS TICS ORDERABLES Final Result [employer] (CLIA #:[id number]) [phone] [place] [address], * (ABNORMAL) POCT HGB A1C (07/23/2025 3:34 PM EDT) Only the most recent of2 resultswithin the time period is included. Hemoglobin A1C 11.2(A) 4.0 - 5.7 % QC Media Lot # [id number] Lot# Expiration Date Blood 07/23/2025 3:34 PM EDT Result Kranthi Wisdom MD POINT OF CARE TEST EN TER/EDIT ORDERABLES Final Result * (ABNORMAL) POCT Glucose (07/23/2025 3:34 PM EDT) [facility] Glucose Blood, POC 284(A) 60 - 200 mg/dL QC Media Lot # [id number] Lot# Expiration Date Blood Capillary blood specimen / Unknown 07/23/2025 3:34 PM EDT Result Kranthi Wisdom MD POINT OF CARE TEST EN TER/EDIT ORDERABLES Final Result * Hepatitis C Viral RNA, Quantitative, Real-Time PCR (07/15/2024 8:48 AM EDT) [facility] Hepatitis C Viral Load <15 NOT DETECTED NOT DETECTED IU/mL [facility] HCV Log PCR <1.18 NOT DETECTED NOT DETECTED Log IU/mL [facility] Comment:For additional infor alicia, please refer tohttp://education.Zank/faq/RHA63a4(This link is being provided for informational/educational purposes only.)THIS TEST WAS PERFORMED AT:[facility] [place] [phone] BARKER MD Blood 07/15/2024 8:48 AM EDT 07/15/2024 11:33 AM EDT Result Kranthi Wisdom MD LAB BLOOD ORDERABLES Final Result [facility] [address] [place] [phone] * HIV-1/2 Antigen and Antibodies, Fourth Generation, with Reflexes (07/15/2024 8:48 AM EDT) HIV AB/AG Nonreactive Nonreactive [facility] Comment:HIV-1 p24 Ag and/or HIV-1/HIV-2 Ab not detected.A test result that is nonreactive does not exclude thepossibility of exposure to or infection with HIV-1 and/orHIV-2. Nonreactive results in this assay for individualswith prior exposure to HIV-1 and/or HIV-2 may be due toantigen and antibody levels that are below the limit ofdetection of this assay.[employer] HIV Ag/Ab Combo assay result andsupplemental assay results should be interpreted inconjunction with the patient's clinical presentation,history and other laboratory results. If the results areinconsistent with clinical evidence, additional testing issuggested to confirm the result. Blood Venous blood specimen / Unknown 07/15/2024 8:48 AM EDT 07/15/2024 11:33 AM EDT us Annemarie Wisdom MD LAB BLOOD ORDERABLES Final Result [facility] [address] [place] [address] [phone] from Last 3 Months or Most Recently Relevant to Health Maintenance Insurance [facility] C3 Care Teams Refrigeration Unit Repairer Relationship Specialty Start Date End Date Annemarie Cui MD [address] [place] [address] PCP - General Internal Medicine 05/05/24 Agueda Cannon, RadhaD [address] [place] [address] Pharmacist Internal Medicine 07/19/24
--- OUTSIDE RECORDS SUMMARY | 2025-08-24 16:22 | XMS_ITS | Encounter Summary ---
Author Organization [id number] Address [address] [facility] [place] [address] Care Team Providers Care Rag Cutting Machine Operator Name Role Phone Annemarie Cui MD Primary Care Provide r Agueda Cannon PharmD Unavailable [phone]- [phone] Encounter Details Date Type Department Care Team (Latest Contact Info) Description 08/22/2025 Travel Social History Tobacco Use Types Packs/Day [...] Description 09/20/2025 3:00 PM EDT Medication Management [facility] [address] [place] [phone] Agueda Cannon PharmD [address] [place] [phone] 11/01/2025 1:45 PM EST Office Visit [facility] [address] [place] [phone] Annemarie Cui MD [address] [place] [phone] documented as of this encounter Goals Goal [...] documented as of this encounter Care Teams Rag Cutting Machine Operator Relationship Specialty Start Date End Date Annemarie Ciu MD [address] [place] [phone] PCP - General Internal Medicine 05/05/24 Agueda Cannon PharmD [address] [place] [phone] Pharmacist Internal Medicine 07/19/24 documented as of this encounter
== END 2025-08-24 13:35 | disposition home or self-care (01) ==
LOC: HO.HKA 13:20
PROVIDERS: PCP Internal Medicine; Visit Provider Internal Medicine Hypertension Specialist
DX: I95.9 Hypotension, unspecified (principal)
CPT/HCPCS: 99214

== ENCOUNTER → 2025-08-24 13:20 | Outpatient (BNVA) | payer MEDICAID, SELFPAY | PROVIDERS: PCP Internal Medicine; Visit Provider Internal Medicine Hypertension Specialist | DX: I95.9 Hypotension, unspecified (principal); E11.9 Type 2 diabetes mellitus without complications; Z79.4 Long term (current) use of insulin | CPT/HCPCS: 99212 ==